=== PATIENT | female | born 1980 | race Caucasian/White ===

== ENCOUNTER → 2020-03-05 15:05 | Outpatient (BNVA) | payer BC, SELFPAY | PROVIDERS: Family Provider Nurse Practitioner; PCP Nurse Practitioner; Visit Provider Emergency Medicine | DX: J02.9 Acute pharyngitis, unspecified (principal); R68.89 Other general symptoms and signs | CPT/HCPCS: 87071; 87635; 87880 ==

== ENCOUNTER → 2021-02-23 15:28 | Outpatient (BNVA) | payer BC, SELFPAY | PROVIDERS: Family Provider Nurse Practitioner; PCP Nurse Practitioner; Visit Provider Obstetrics & Gynecology | DX: N93.9 Abnormal uterine and vaginal bleeding, unspecified (principal) | CPT/HCPCS: 83001; 84146; 84443; 84702; 85025 ==

== ENCOUNTER → 2021-02-25 08:36 | Outpatient (BNVA) | payer BC, SELFPAY | PROVIDERS: Family Provider Nurse Practitioner; PCP Nurse Practitioner; Visit Provider Obstetrics & Gynecology | DX: N93.9 Abnormal uterine and vaginal bleeding, unspecified (principal) | CPT/HCPCS: 76830 ==

== ENCOUNTER → 2021-03-04 17:37 | Outpatient (BNVA) | payer BC, SELFPAY | PROVIDERS: Family Provider Nurse Practitioner; PCP Nurse Practitioner; Visit Provider Family Medicine | DX: U07.1 COVID-19 (principal) | CPT/HCPCS: 87635; Q9956 ==

== ENCOUNTER → 2021-03-05 15:27 | Outpatient (BNVA) | payer BC, SELFPAY | PROVIDERS: Family Provider Nurse Practitioner; PCP Nurse Practitioner; Visit Provider Family Medicine | DX: U07.1 COVID-19 (principal); Z20.822 Contact with and (suspected) exposure to COVID-19 | CPT/HCPCS: 87635 ==

== ENCOUNTER 2021-03-10 12:25 | Inpatient (IN) | payer BC, SELFPAY ==
[2021-03-10] VITALS (10 sets, daily range): BP systolic 122–189; BP diastolic 72–106; PULSE 78–97; RESP 16–22; TEMP 36.5–37.2; O2SAT 90–94; BMI 49.8
--- NOTE | 2021-03-10 12:33 | XR_ITS ---
WS: [id number] Portable AP upright chest, 03/10/2021 Clinical Data: Cough Comparison: None. Findings: Bilateral patchy opacities throughout the lungs are consistent with diffuse pneumonia. The heart is slightly enlarged. No nodules, masses or effusions are seen. XR/XR chest 1V portable [id number] Impression: 1. Bilateral patchy opacities most consistent with pneumonia. 2. Cardiomegaly.
--- NOTE | 2021-03-10 12:34 | ED_ITS ---
HPI - SOB/Dyspnea General: Chief Complaint: COVID symptoms Stated Complaint: COVID Time Seen by Provider: 03/10/21 12:31 History of Present Illness: HPI Narrative: This patient is a 40-year-old female who presents to the emergency department for Covid-like symptoms. Patient states she tested +2 days ago at an urgent care in [place]. Patient states she was also diagnosed with bilateral pneumonia. Patient states that she became increasing shortness of breath over the past 2 days. EMS reports that her pulse ox at home was in the 70s. Patient is on 3 L by nasal cannula at this time patient states feeling much better. Will do medical evaluation treat as needed MD elicited complaint: shortness of breath and cough Pertinent past history: pneumonia Timing: constant Severity: moderate Exacerbating factors: nothing Relieving factors: nothing Known history of: recurrent pneumonia Associated symptoms: Deny abdominal pain, chest pain, extremity pain, fever(s), lightheadedness, nausea, palpitations or vomiting Review of Systems General: Reports: 10 or more systems reviewed and unremarkable except in HPI and below Const: Denies: fever(s), chills, body aches or fatigue Eyes: Denies: change in vision or blurry vision ENMT: Denies: throat pain, hoarseness or mouth pain Card: Denies: chest pain, palpitations, irregular heart rhythm, edema, swelling of feet/ankles or lightheadedness Resp: Reports: dyspnea and non-productive cough; Denies: productive cough, wheezing or pain on inspiration GI: Denies: abdominal pain, nausea or vomiting : Denies: flank pain, difficulty voiding, dysuria, urinary frequency, urinary urgency or urinary hesitancy Musc: Denies: neck pain, back pain, extremity pain, extremity swelling, joint pain, joint swelling, joint redness, joint warmth or limited range of motion Skin/Breast: Denies: rash, pruritus, erythema or skin tenderness Neuro: Denies: headache(s), numbness in extremities or weakness in extremities Psych: Denies: anxiety or depression PFSH ED PFSH: Medical History Flu-like symptoms Family History Grandfather Diabetes maternal Hyperlipidemia maternal Hypertension maternal Heart disease maternal Brother Heart disease Denies family history of Colon cancer Ovarian cancer Clotting disorder Breast cancer Anesthesia complication Bleeding disorder Uterine cancer Thyroid condition Stroke Social History Smoking and tobacco status: current every day smoker Quit status (tobacco): has quit using tobacco Year quit tobacco: 2019 Alcohol intake: current Alcohol intake frequency: holidays/special occasions only Alcohol type: wine and hard liquor Female Reproductive History: Spontaneous abortions: No Physical Exam Const: COMMON NORMALS: no acute distress, average body habitus, patient oriented x3, no limitations, healthy appearing, alert and well nourished HENMT: COMMON NORMALS: normocephalic, atraumatic, hearing grossly normal bilaterally, external ears normal, EAC's normal, TM's normal bilaterally, Normal external nose present, Normal nasal mucous membranes and turbinates present, moist oral mucous membranes, oropharynx normal, dentition normal and gingiva normal HEAD & SCALP: normocephalic and atraumatic NOSE: Normal external n ose present and Normal nasal mucous membranes and turbinates present EXTERNAL EAR: Yes external ears normal EXTERNAL AUDITORY CANAL: EAC's normal TYMPANIC MEMBRANE: TM's normal bilaterally Neck/C-Spine: COMMON NORMALS: full ROM, no lymphadenopathy, supple, no meningeal signs, no JVD, Thyroid normal and No carotid bruits THYROID: Thyroid normal Chest: COMMONS NORMALS: normal inspection of the chest, normal palpation of entire chest wall, normal inspection of the breasts and normal palpation of the breasts Breast/axilla inspection: Yes normal inspection of the breasts BREAST/AXILLA PALPATION: Yes normal palpation of the breasts Resp: COMMON NORMALS: normal respiratory effort, No retractions, No use of accessory muscles, clear to auscultation bilaterally and percussion normal AUSCULTATION: clear to auscultation bilaterally PERCUSSION: percussion normal Cardio: COMMON NORMALS: no JVD, regular rate, regular rhythm, S1 normal heart sound present, S2 normal heart sound present, No gallops present (Cardio), No clicks present (Cardio), No murmurs present (Cardio), No rub (Cardio) and Lana pheral pulses 2+ throughout RATE: regular rate RHYTHM: regular rhythm HEART SOUNDS: S1 normal heart sound present and S2 normal heart sound present PERIPHERAL PULSES: Peripheral pulses 2+ throughout GI: COMMON NORMALS: Normal to inspection, nondistended, normoactive bowel sounds present, Soft to palpation, non-tender, No hepatosplenomegaly present, no masses and no bruits PALPATION: Yes Soft to palpation and Yes No hepatosplenomegaly present Back/Pelvis: COMMON NORMALS: thoracic and lumbar spine normal to inspection, no thoracic nor lumbar tenderness, thoraco-lumbar ROM normal and straight leg raise negative bilaterally Extremity: COMMON NORMALS: normal to inspection, full ROM, capillary refill normal, no joint enlargement, no clubbing, cyanosis or edema, no calf tenderness and no pedal edema Neuro: COMMON NORMALS: patient oriented x3 SENSORIUM/ORIENTATION: Yes alert MENINGEAL SIGNS: Yes no meningeal signs Course Vital Signs: Vital signs: Vital Signs Temperature 98.9 F 03/10/21 13:42 Pulse Rate 97 03/10/21 15:29 Respiratory Rate 20 H 03/10/21 15:29 Blood Pressure 189/106 03/10/21 15:29 Pulse Oximetry 90 03/10/21 15:29 MDM - SOB/Dyspnea Lab Data: Labs: Lab Results 03/10/21 03/10/21 03/10/21 Range/Units 13:07 13:54 13:57 WBC 12.0 H (4.0-10.0) 10^3/ uL RBC 3.97 L (4.1-5.3) 10^6/u L Hgb 10.7 L (11.5-15.3) g/dL Hct 35.0 L (37.0-47.0) % MCV 88.2 (81-99) fL MCH 27.0 L (28.0-34.0) pg MCHC 30.6 (30.0-36.0) g/dL RDW 14.1 (12.1-15.1) % Plt Count 259 (130-400) 10^3/c mm MPV 11.3 H (7.4-10.4) fL Neut % (Auto) 85.3 % Lymph % (Auto) 9.8 % Liberty % (Auto) 3.8 % Eos % (Auto) 0.0 % Baso % (Auto) 0.2 % Neut # (Auto) 10.27 H (1.8-7.7) 10^3/u L Lymph # (Auto) 1.2 (0.8-4.8) 10^3/u L Liberty # (Auto) 0.5 (0.2-0.9) 10^3/u L Eos # (Auto) 0.0 (0.0-0.8) 10^3/u L Baso # (Auto) 0.0 (0.0-0.1) 10^3/u L Nucleated RBC % (a uto) 0.2 % Nucleated RBCs # 0.0 /100WBC D-Dimer (0-0.59) ug/mIFE U Specimen Type Sample Site ABG pH (7.35-7.45) ABG pCO2 (35-45) mmHg ABG pO2 (80.0-100.0) mmH g ABG HCO3 (22-26) mmol/L ABG O2 Saturation ABG Base Excess (-2.0-2.0) mmol/ L Bryan Test A-a O2 Gradient (5-10) mmHg Hematocrit (37-47) % Hgb O2 Saturation (95-100) % Carboxyhemoglobin (0.4-20.1) %THgb Methemoglobin (0.4-1.5) % Total Hemoglobin (12-16) g/dL Ionized Calcium (1.1-1.4) mmol/L O2 Delivery Device O2 Liters/Min % FiO2 % Grain Ii Farmworker ID Sodium (136-145) mmol/L Potassium (3.5-5.1) mmol/L Chloride (98-107) mmol/L Carbon Dioxide (22-29) mmol/L Anion Gap (5-19) BUN (6-20) mg/dL Creatinine (0.5-0.9) mg/dL GFR Calculation (90-130) mL/min Glucose (65-115) mg/dL Calculated Osmolal ity (285-295) mOsm/k g Lactic Acid (0.5-2.2) mmol/L Calcium (8.5-10.5) mg/dL Total Bilirubin (0.15-1.2) mg/dL AST (0-32) U/L ALT (0-33) U/L Alkaline Phosphata se (35-105) IU/L Total Protein (6.6-8.7) g/dL Albumin (3.5-5.2) g/dL Globulin (1.3-4.6) g/dL Urine Color Red (Yellow) Urine Appearance Hazy A (CLEAR) Urine pH 5 (5-7) Ur Specific Gravit y 1.015 (1.005-1.030) Urine Protein 1+ H (Negative) Urine Glucose (UA) Norm (Normal) Urine Ketones Negative (Negative) Urine Blood 3+ H (Negative) Urine Nitrate Negative (Negative) Urine Bilirubin Neg (Negative) Urine Urobilinogen Norm (Negative) mg/dL Ur Leukocyte Velia ase Negative (Negative) Urine RBC 15-25 H (0-2) /hpf Urine WBC 0-4 H (0-5) /hpf Ur Squamous Epith Cells None (0-5) /hpf Amorphous Sediment Not Reportable Urine Bacteria 2+ H (NONE) /hpf SARS-CoV-2 Ag (Rap id) Negative (Negative) 03/10/21 03/10/21 03/10/21 Range/Units 13:57 13:57 13:57 WBC (4.0-10.0) 10^3/ uL RBC (4.1-5.3) 10^6/u L Hgb (11.5-15.3) g/dL Hct (37.0-47.0) % MCV (81-99) fL MCH (28.0-34.0) pg MCHC (30.0-36.0) g/dL RDW (12.1-15.1) % Plt Count (130-400) 10^3/c mm MPV (7.4-10.4) fL Neut % (Auto) % Lymph % (Auto) % Liberty % (Auto) % Eos % (Auto) % Baso % (Auto) % Neut # (Auto) (1.8-7.7) 10^3/u L Lymph # (Auto) (0.8-4.8) 10^3/u L Liberty # (Auto) (0.2-0.9) 10^3/u L Eos # (Auto) (0.0-0.8) 10^3/u L Baso # (Auto) (0.0-0.1) 10^3/u L Nucleated RBC % (a uto) % Nucleated RBCs # /100WBC D-Dimer 1.16 H (0-0.59) ug/mIFE U Specimen Type Sample Site ABG pH (7.35-7.45) ABG pCO2 (35-45) mmHg ABG pO2 (80.0-100.0) mmH g ABG HCO3 (22-26) mmol/L ABG O2 Saturation ABG Base Excess (-2.0-2.0) mmol/ L Bryan Test A-a O2 Gradient (5-10) mmHg Hematocrit (37-47) % Hgb O2 Saturation (95-100) % Carboxyhemoglobin (0.4-20.1) %THgb Methemoglobin (0.4-1.5) % Total Hemoglobin (12-16) g/dL Ionized Calcium (1.1-1.4) mmol/L O2 Delivery Device O2 Liters/Min % FiO2 % Grain Ii Farmworker ID Sodium 140 (136-145) mmol/L Potassium 3.5 (3.5-5.1) mmol/L Chloride 104 (98-107) mmol/L Carbon Dioxide 21 L (22-29) mmol/L Anion Gap 18.5 (5-19) BUN 10 (6-20) mg/dL Creatinine 0.7 (0.5-0.9) mg/dL GFR Calculation 92.2 (90-130) mL/min Glucose 130 H (65-115) mg/dL Calculated Osmolal ity 291 (285-295) mOsm/k g Lactic Acid 1.8 (0.5-2.2) mmol/L Calcium 7.9 L (8.5-10.5) mg/dL Total Bilirubin 0.4 (0.15-1.2) mg/dL AST 25 (0-32) U/L ALT 21 (0-33) U/L Alkaline Phosphata se 62 (35-105) IU/L Total Protein 6.6 (6.6-8.7) g/dL Albumin 3.5 (3.5-5.2) g/dL Globulin 3.1 (1.3-4.6) g/dL Urine Color (Yellow) Urine Appearance (CLEAR) Urine pH (5-7) Ur Specific Gravit y (1.005-1.030) Urine Protein (Negative) Urine Glucose (UA) (Normal) Urine Ketones (Negative) Urine Blood (Negative) Urine Nitrate (Negative) Urine Bilirubin (Negative) Urine Urobilinogen (Negative) mg/dL Ur Leukocyte Velia ase (Negative) Urine RBC (0-2) /hpf Urine WBC (0-5) /hpf Ur Squamous Epith Cells (0-5) /hpf Amorphous Sediment Urine Bacteria (NONE) /hpf SARS-CoV-2 Ag (Rap id) (Negative) 03/10/21 Range/Units 14:50 WBC (4.0-10.0) 10^3/ uL RBC (4.1-5.3) 10^6/u L Hgb (11.5-15.3) g/dL Hct (37.0-47.0) % MCV (81-99) fL MCH (28.0-34.0) pg MCHC (30.0-36.0) g/dL RDW (12.1-15.1) % Plt Count (130-400) 10^3/c mm MPV (7.4-10.4) fL Neut % (Auto) % Lymph % (Auto) % Liberty % (Auto) % Eos % (Auto) % Baso % (Auto) % Neut # (Auto) (1.8-7.7) 10^3/u L Lymph # (Auto) (0.8-4.8) 10^3/u L Liberty # (Auto) (0.2-0.9) 10^3/u L Eos # (Auto) (0.0-0.8) 10^3/u L Baso # (Auto) (0.0-0.1) 10^3/u L Nucleated RBC % (a uto) % Nucleated RBCs # /100WBC D-Dimer (0-0.59) ug/mIFE U Specimen Type Arterial Sample Site Brachial, left ABG pH 7.46 H (7.35-7.45) ABG pCO2 34.3 L (35-45) mmHg ABG pO2 60.2 L (80.0-100.0) mmH g ABG HCO3 24.0 (22-26) mmol/L ABG O2 Saturation 92.7 ABG Base Excess 0.4 (-2.0-2.0) mmol/ L Bryan Test N/a A-a O2 Gradient 20.1 H (5-10) mmHg Hematocrit 32.1 L (37-47) % Hgb O2 Saturation 90.7 L (95-100) % Carboxyhemoglobin 1.0 (0.4-20.1) %THgb Methemoglobin 1.1 (0.4-1.5) % Total Hemoglobin 10.5 L (12-16) g/dL Ionized Calcium 1.1 (1.1-1.4) mmol/L O2 Delivery Device Nc O2 Liters/Min 4.0 % FiO2 36.0 % Grain Ii Farmworker ID Gd Sodium 141.0 (136-145) mmol/L Potassium 3.5 (3.5-5.1) mmol/L Chloride (98-107) mmol/L Carbon Dioxide (22-29) mmol/L Anion Gap (5-19) BUN (6-20) mg/dL Creatinine (0.5-0.9) mg/dL GFR Calculation (90-130) mL/min Glucose 140.0 H (65-115) mg/dL Calculated Osmolal ity (285-295) mOsm/k g Lactic Acid (0.5-2.2) mmol/L Calcium (8.5-10.5) mg/dL Total Bilirubin (0.15-1.2) mg/dL AST (0-32) U/L ALT (0-33) U/L Alkaline Phosphata se (35-105) IU/L Total Protein (6.6-8.7) g/dL Albumin (3.5-5.2) g/dL Globulin (1.3-4.6) g/dL Urine Color (Yellow) Urine Appearance (CLEAR) Urine pH (5-7) Ur Specific Gravit y (1.005-1.030) Urine Protein (Negative) Urine Glucose (UA) (Normal) Urine Ketones (Negative) Urine Blood (Negative) Urine Nitrate (Negative) Urine Bilirubin (Negative) Urine Urobilinogen (Negative) mg/dL Ur Leukocyte Velia ase (Negative) Urine RBC (0-2) /hpf Urine WBC (0-5) /hpf Ur Squamous Epith Cells (0-5) /hpf Amorphous Sediment Urine Bacteria (NONE) /hpf SARS-CoV-2 Ag (Rap id) (Negative) Imaging Data^: CXR: Attestation: I personally reviewed and interpreted this imaging study as follows: Radiologist's impression: Findings: Bilateral patchy opacities throughout the lungs are consistent with diffuse pneumonia. The heart is slightly enlarged. No nodules, masses or effusions are seen. XR/XR chest 1V portable [id number] Impression: 1. Bilateral patchy opacities most consistent with pneumonia. 2. Cardiomegaly. CT Chest: Attestation: I personally reviewed and interpreted this imaging study as follows: Radiologist's impression: IMPRESSION: 1. Negative for pulmonary embolus 2. Patchy bilateral airspace opacities consistent with an infectious process. 3. Hepatic steatosis. 4. Cholecystectomy. Discharge Plan Discharge Condition: Stable Prescriptions: No Action escitalopram oxalate [Lexapro] 20 mg tablet 20 mg PO BEDTIME RF: 0 Tylenol Extra Strength 500 mg Tablet 1,000 mg PO PRN RF: 0 promethazine 25 mg tablet 25 mg PO Q6H PRN (Reason: Nausea And Vomiting) RF: 0 ibuprofen 200 mg Tablet 400 - 600 mg PO PRN RF: 0 levofloxacin 500 mg tablet 500 mg PO DAILY RF: 0 Referrals: Chanel Brock FNP [Primary Care Provider] - Coding Level of Care Code ED Installer Apprentice for Chg Fwd Exam Comprehensive
[2021-03-10] MEDS: sodium chloride 0.9% 500 ML IV (13:30)
[2021-03-10] MEDS: dexamethasone 10 mg/mL INJ IM (13:30)
[2021-03-10 14:21] LABS: Basophils % 0.2 %; Hemoglobin 10.7 g/dL (11.5-15.3); Lymphocytes # 1.2 10^3/uL (0.8-4.8); Lymphocytes % 9.8 %; Mean Corpuscular HGB Conc 30.6 g/dL (30.0-36.0); Mean Corpuscular Volume 88.2 fL (81-99); Mean Platelet Volume 11.3 fL (7.4-10.4); Monocytes # 0.5 10^3/uL (0.2-0.9); Monocytes % 3.8 %; Neutrophils # 10.27 10^3/uL (1.8-7.7); Neutrophils % 85.3 %; Nucleated Red Blood Cells % 0.2 %; Platelet Count 259 10^3/cmm (130-400); Red Blood Count 3.97 10^6/uL (4.1-5.3); Red Cell Distribution Width 14.1 % (12.1-15.1)
[2021-03-10 14:24] LABS: D Dimer 1.16 ug/mIFEU (0-0.59)
[2021-03-10 14:27] LABS: Lactic Sepsis W/Reflex 1.8 mmol/L (0.5-2.2)
[2021-03-10 14:28] LABS: Alanine Aminotransferase 21 U/L (0-33); Albumin Level 3.5 g/dL (3.5-5.2); Alkaline Phosphatase 62 IU/L (35-105); Anion Gap 18.5 (5-19); Aspartate Amino Transferase 25 U/L (0-32); Blood Urea Nitrogen 10 mg/dL (6-20); Calcium 7.9 mg/dL (8.5-10.5); Carbon Dioxide 21 mmol/L (22-29); Chloride 104 mmol/L (98-107); Globulin 3.1 g/dL (1.3-4.6); Glomerular Filtration Rate 92.2 mL/min (90-130); Glucose 130 mg/dL (65-115); Osmolality Calculated 291 mOsm/kg (285-295); Potassium 3.5 mmol/L (3.5-5.1); Sodium 140 mmol/L (136-145); Total Bilirubin 0.4 mg/dL (0.15-1.2); Total Protein 6.6 g/dL (6.6-8.7)
[2021-03-10 14:28] LABS: Add Urine Microscopic? YES; Bacteria Urine 2+ /hpf; Bilirubin Urine Neg (Negative); Blood Urine 3+ (Negative); Glucose Urine UA Norm (Normal); Ketones Urine Negative (Negative); Leukocyte Esterase Urine Negative (Negative); Nitrate Urine Negative (Negative); Protein Urine 1+ (Negative); RBC Urine 15-25 /hpf (0-2); Specific Gravity, Urine 1.015 (1.005-1.030); Urine Appearance Hazy (CLEAR); Urine Color Red (Yellow); Urobilinogen Urine Norm (Negative); WBC Urine 0-4 /hpf (0-5); pH Urine 5 (5-7)
[2021-03-10 14:29] LABS: Add Urine Culture? Yes
[2021-03-10] MEDS: albuterol 8 gm MDI 2 PUFF INHALATION (14:40)
--- NOTE | 2021-03-10 14:53 | CTR_ITS ---
PROCEDURE INFORMATION: Exam: CTA Chest With Contrast Exam date and time: 03/10/2021 2:53 PM Age: 40 years old Clinical indication: Shortness of breath; Additional info: SOB with elevated ddimer - possible covid TECHNIQUE: Imaging protocol: Computed tomographic angiography of the chest with contrast. 3D rendering (Not supervised by radiologist): MIP and/or 3D reconstructed images were created by the technologist. Radiation optimization: All CT scans at this facility use at least one of these dose optimization techniques: automated exposure control; mA and/or kV adjustment per patient size (includes targeted exams where dose is matched to clinical indication); or iterative reconstruction. Contrast material: OMNI 350; Contrast volume: 140 ml; Contrast route: INTRAVENOUS (IV); COMPARISON: CR XR chest 1V portable [id number] 03/10/2021 12:47 PM RADIATION DOSE METRICS: Total DLP (mGy-cm): 2341.69 FINDINGS: Pulmonary arteries: Normal. No pulmonary emboli. Aorta: Unremarkable. No aortic aneurysm. No aortic dissection. Lungs: Patchy bilateral airspace opacities consistent with an infectious process. Pleural spaces: Unremarkable. No pneumothorax. No pleural effusion. Heart: Unremarkable. No cardiomegaly. No pericardial effusion. Lymph nodes: Unremarkable. No enlarged lymph nodes. Liver: Hepatic steatosis. Gallbladder and bile ducts: Cholecystectomy. Bones/joints: Unremarkable. No acute fracture. Soft tissues: Unremarkable. CT/CT angio chest PE protcl [id number] IMPRESSION: 1. Negative for pulmonary embolus 2. Patchy bilateral airspace opacities consistent with an infectious process. 3. Hepatic steatosis. 4. Cholecystectomy. Radiation Dose CTDIVOL = (mGy): DLP = 2341.69 (mGy-cm)
[2021-03-10 15:12] LABS: ABG PCO2 34.3 mmHg (35-45); ABG PH Result 7.46 (7.35-7.45); Alveolar-Arterial Oxygen Gradi 20.1 mmHg (5-10); Arterial Blood Gas Hematocrit 32.1 % (37-47); Base Excess ABG 0.4 mmol/L (-2.0-2.0); Blood Gas Operator Identificat GD; Blood Gas Sample Site Brachial, left; Blood Gas Sample Type Arterial; HGB O2 Sat 90.7 % (95-100); Ionized Calcium Level - ABG 1.1 mmol/L (1.1-1.4); Methemoglobin 1.1 % (0.4-1.5); Oxygen Device NC; Oxygen Saturation ABG 92.7; PO2 ABG 60.2 mmHg (80.0-100.0); Potassium Level - ABG 3.5 mmol/L (3.5-5.0); Total Hemoglobin 10.5 g/dL (12-16)
[2021-03-10 15:13] LABS: SARS Covid-2 Antigen Negative (Negative)
[2021-03-10] MEDS: iohexol 350 mg/mL 100 mL Btl IV ×2 (15:15→15:22)
[2021-03-10] MEDS: azithromycin 500 MG in sodium chloride 0.9% 250 ML 250 MG IV (15:52)
--- NOTE | 2021-03-10 16:43 | PM.HP ---
Providers/Chief Complaint Primary Care Provider: AMAYA Christianson Chief Complaint: COVID History of Present Illness Lisy Edmondson is a 40 year old female with no significant past medical history other than heavy menstrual bleeding for last 2 months on and off. Patient states she was doing fine until February 28 when she started having fevers, runny nose, headache, dizziness for which he went to the urgent care where she was diagnosed of a possible strep throat. As patient was not feeling well she went to the urgent care on March 05 where she was tested positive for COVID-19. She went to [place] but was not been able to admitted because of lack of beds. She presented to the ER today because of difficulty in breathing. Inferiorly patient was found to have a saturation of 71% on room air. In ER on examination patient is tachypneic saturating 91% on 5 L oxygen supplementation. She denies any nausea vomiting, dizziness presently. She states she has been having menstrual bleeding again for last 2 days. Blood work in the ER showed a white count of 12,000, hemoglobin of 10.7, 143, creatinine 0.7, AST/ALT 25/21, UA 3+ blood, negative for any sign of infection. CTA which was as below. Review of Systems General: Reports: 10 or more systems reviewed and unremarkable except in HPI and below Const: Denies: fever(s), chills, body aches, change in appetite, change in weight, malaise, night sweats, diaphoresis, change in sleep pattern, daytime sleepiness or snoring Eyes: Denies: change in vision, blurry vision, photophobia, eye discomfort or eye discharge ENMT: Denies: throat pain, enlarged tonsils, hoarseness, mouth pain, oral sores, dry mouth, tinnitus, nasal congestion or post nasal drip Card: Denies: chest pain, palpitations, irregular heart rhythm, edema, swelling of feet/ankles, lightheadedness, syncope, pre-syncope, dyspnea on exertion, orthopnea, leg pain with exertion or acrocyanosis Resp: Denies: dyspnea, productive cough, non-productive cough, wheezing, stridor, pain on inspiration, change in phlegm color, hemoptysis or chest congestion GI: Denies: abdominal pain, nausea, vomiting, hematemesis, coffee ground emesis, dysphagia, heartburn, diarrhea, constipation, bloating, GI cramping, change in bowel habits, pain on defecation, hematochezia or melena : Denies: flank pain, dysuria, urinary frequency, urinary urgency, urinary hesitancy, nocturia or hematuria Musc: Denies: neck pain, back pain, extremity pain, joint pain, joint swelling, joint redness, joint stiffness or limited range of motion Neuro: Denies: headache(s), numbness in extremities, weakness in extremities, sensory changes, lack of coordination, difficulty walking, frequent falls, dizziness, vertigo, confusion, Slurred speech present, difficulty communicating thoughts or seizure-like activity Psych: Denies: anxiety, depression, mood swings, panic attacks, hopelessness or irritability Endo: Denies: polyuria, polydipsia, tired all the time, cold intolerance, excessive sweating, flushing or heat intolerance Arsenio/Lymph: Denies: easy bruising or easy bleeding All/Imm: Denies: tongue swelling, facial swelling or acute wheezing Medications/Allergies Home Medications Medication Instructions Recorded Confirmed Last Taken Type escitalopram oxalate 20 mg tablet 20 mg PO BEDTIME 02/23/21 03/10/21 03/09/21 History acetaminophen [Tylenol Extra 1,000 mg PO PRN 03/10/21 03/10/21 Unknown History Strength] ibuprofen 400 - 600 mg PO PRN 03/10/21 03/10/21 Unknown History levofloxacin 500 mg PO DAILY 03/10/21 03/10/21 03/09/21 History promethazine 25 mg PO Q6H PRN 03/10/21 03/10/21 03/09/21 History Allergies Allergy/AdvReac Type Severity Reaction Status Date / Time codeine Allergy Intermediate rash Verified 03/10/21 15:30 Penicillins Allergy Intermediate rash Verified 03/10/21 15:30 PFSH Acute PFSH: Medical History (Updated 03/10/21 @ 17:26 by Javier Hutchinson MD) Abnormal uterine bleeding (AUB) Flu-like symptoms Surgical History (Updated 03/10/21 @ 17:26 by Javier Hutchinson MD) H/O dilation and curettage x2 S/P cholecystectomy Family History Grandfather Diabetes maternal Hyperlipidemia maternal Hypertension maternal Heart disease maternal Brother Heart disease Denies family history of Colon cancer Ovarian cancer Clotting disorder Breast cancer Anesthesia complication Bleeding disorder Uterine cancer Thyroid condition Stroke Social History Smoking and tobacco status: current every day smoker Quit status (tobacco): has quit using tobacco Year quit tobacco: 2019 Alcohol intake: current Alcohol intake frequency: holidays/special occasions only Alcohol type: wine and hard liquor Female Reproductive History: Spontaneous abortions: No Vitals/I&O/Wt Last Vital Signs Temp 98.9 F 03/10/21 13:42 Pulse 97 03/10/21 15:29 Resp 20 H 03/10/21 15:29 BP 189/106 03/10/21 15:29 Pulse Ox 90 03/10/21 15:29 Weight last 48 hrs Weight 144.242 kg Physical Exam Narrative: EXAM NARRATIVE: General: In distress because of difficulty in breathing, AOx3, morbidly obese on 4 L oxygen supplementation HEENT: PERRLA, pupils bilateral equal and reactive Chest: Bilateral diminished breath sounds, occasional rhonchi present all over lung hall CVS: S1-S2 regular, no murmurs, no tachycardia, no gallops, no rubs Abdomen: Soft, nontender, no organomegaly, bowel sounds present Neuro: No focal deficits, no facial deformity, AO x3, power 5/5 in all limbs Data : 03/10/21 13:57 03/10/21 13:57 Micro: Microbiology 03/10/21 13:57 Blood Culture - Preliminary Blood SPECIMEN COLLECTED 03/10/21 13:54 Blood Culture - Preliminary Blood SPECIMEN COLLECTED A&P Assessment and plan (1) Respiratory failure with hypoxia: Status: Acute (2) COVID-19: Status: Acute (3) Heavy menstrual bleeding: Status: Acute Qualifiers: Menorrhagia type: with irregular cycle Qualified Code(s): N92.1 - Excessive and frequent menstruation with irregular cycle Additional A&P Information Hypoxic respiratory failure secondary to COVID-19 pneumonia: Oxygen supplementation keeping saturation 92%. Start patient on remdesivir. Decadron 6 mg IV daily. Advair, Spiriva. Vitamin C, zinc. Pulmonary toilet with incentive spirometry and flutter valve. Check procalcitonin, MRSA swab, blood culture, sputum culture, flu swab, urine legionella, bacterial antigen. Low suspicion for superimposed bacterial infection for now as patient is on azithromycin 5 mg IV daily. Check inflammatory markers including LDH, ESR, CRP, ferritin. If inflammatory markers trending up or if patient is requiring higher oxygen supplementation can give a dose of Actemra. D-dimer elevated but CTA negative for pulmonary embolism. Given abnormal heavy menstrual bleeding will hold off on giving full dose anticoagulation for now. Check iron panel, vitamin B12, folate level. Heavy menstrual bleeding: We will consult MANAGER ORDER for further assistance. Can add tranexamic acid. Check B-hcg, transvaginal USG Monitor hemoglobin. Full code. GI soft regular diet. Famotidine for PUD prophylaxis. Attestations Medical Necessity Statement*: Admission for more than 2 midnights for hypoxic respiratory failure secondary COVID-19 pneumonia. Time Spent in Patient Care: Greater than 35 minutes (>than 50% of time spent in counselling and/or direct pt care on unit). Coding Level of Care Code Acute [employer]osc[employer] Laboratory Technician for [facility] Diagnoses Respiratory failure with hypoxia J96.91 COVID-19 U07.1 Heavy menstrual bleeding N92.1 Menorrhagia type: with irregular cycle
[2021-03-10 17:12] LABS: Fibrinogen 516 mg/dL (174-498)
[2021-03-10 17:34] LABS: Procalcitonin 0.05 ng/mL (0-0.5); Thyroid Stimulating Hormone 1.38 uIU/mL (0.27-4.20)
[2021-03-10 17:35] LABS: NT Pro B Type Natriuretic Pept 79 pg/mL (0-125)
[2021-03-10 17:37] LABS: Erythrocyte Sedimentation Rate 76 mm/hr (0-15)
[2021-03-10 17:45] LABS: Creatine Phosphokinase 81 U/L (26-192); Iron 10 ug/dL (37-145); Lactate Dehydrogenase 412 U/L (135-214); Magnesium 2.5 mg/dL (1.7-2.3); Percent Saturation 3.8 % (20-50); Total Iron Binding Capacity 263 mcg/dl; Unsaturated Iron Binding 253 ug/dL (112-347)
[2021-03-10] MEDS: remdesivir 200 MG in sodium chloride 0.9% (100 ml) 100 ML 100 MG IV (17:45)
[2021-03-10] MEDS: famotidine 20 mg/2 mL INJ IVP (17:46)
[2021-03-10 18:15] LABS: Influenza A by IFA Negative (Negative); Influenza B by IFA Negative (Negative)
[2021-03-10] MEDS: benzonatate 100 mg Capsule PO (20:26)
[2021-03-10] MEDS: ferrous gluconate 324 mg Tablet PO (20:26)
[2021-03-10] MEDS: ascorbic acid 500 mg Tablet 1000 MG PO (20:26)
[2021-03-11] VITALS (10 sets, daily range): BP systolic 108–138; BP diastolic 69–87; PULSE 74–93; RESP 16–20; TEMP 36.4–37.8; O2SAT 90–93; BMI 49.8
[2021-03-11] MEDS: famotidine 20 mg/2 mL INJ IVP ×2 (04:47→16:26)
--- NOTE | 2021-03-11 05:00 | USCV_ITS ---
Lisy Edmondson Age: 40 Gender: F : 1980 Exam Date: 03/11/2021 13:14 Ordering Phys: Javier Hutchinson MD Technologist: Exam Location: [facility] [place] Indication: SOB/COVID BP: 138 / 78 HR: 103 Rhythm: Sinus Technical Quality: Adequate MEASUREMENTS (Male / Female) Normal Values 2D ECHO LV Diastolic Diameter PLAX 3.5 cm 4.2 - 5.9 / 3.9 - 5.3 cm LV Systolic Diameter PLAX 2.2 cm IVS Diastolic Thickness 1.0 cm 0.6 - 1.0 / 0.6 - 0.9 cm IVS Systolic Thickness 1.3 cm LVPW Diastolic Thickness 1.0 cm 0.6 - 1.0 / 0.6 - 0.9 cm LVPW Systolic Thickness 1.6 cm LVOT Diameter 2.0 cm LV Ejection Fraction 2D Teich 67.9 % LV Ejection Fraction MOD 2C 67.4 % LV Ejection Fraction 2C AL 67.7 % LA Diameter 3.3 cm LA Width 3.7 cm LA Height 4.5 cm RA Width 3.4 cm RA Height 4.3 cm Aorta at Sinotubular Diameter 2.0 cm DOPPLER AV Peak Velocity 181.0 cm/s LVOT Peak Velocity 108.0 cm/s AV Area Cont Eq vti 2.4 cm squared AV Area Cont Eq pk 1.9 cm squared MV Area PHT 5.0 cm squared Mitral E to A Ratio 1.3 MV E' Velocity 61.0 cm/s Mitral E to MV E' Ratio 7.9 Mitral E to LV E' Lateral Ratio 6.9 Mitral E to LV E' Septal Ratio 9.2 TR Peak Velocity 146.0 cm/s TR Peak Gradient 8.5 mmHg TV Peak E Velocity 121.0 cm/s Right Atrial Pressure 3.0 mmHg Pulmonary Artery Systolic Pressu 11.5 mmHg PV Peak Velocity 104.0 cm/s FINDINGS Left Ventricle Normal left ventricular cavity size. Normal left ventricular systolic function. No regional wall motion abnormalities. Left ventricular ejection fraction is estimated at 65 %. Normal diastolic function. Right Ventricle The right ventricle is normal in size and function. Right Atrium The right atrium is normal in size. Left Atrium The left atrium is normal in size. Mitral Valve Structurally normal mitral valve without significant stenosis or prolapse. There is no mitral regurgitation. Aortic Valve Structurally normal aortic valve without significant sclerosis or stenosis. There is no aortic regurgitation. Tricuspid Valve Structurally normal tricuspid valve without significant stenosis or regurgitation. Pulmonary artery systolic pressure is normal. Pulmonic Valve Structurally normal pulmonic valve without significant stenosis. There is no pulmonic regurgitation. Pericardium Normal pericardium without effusion. Aorta Normal ascending aorta dimension. CONCLUSIONS 1-Normal left ventricular cavity size. Normal left ventricular systolic function. No regional wall motion abnormalities. Left ventricular ejection fraction is estimated at 65 %. Normal diastolic function. 2-No significant valve abnormalities. 3-There is no pericardial effusion. 4-Pulmonary artery systolic pressure is within normal limits. 5-Right atrial pressure is around 5 mm of mercury. 6-There are no prior echocardiogram studies to compare. Arian Rodriguez MD (Electronically Signed) Final Date: 11 March 2021 15:57 S
--- NOTE | 2021-03-11 06:00 | XR_ITS ---
WS: [id number] Portable AP upright chest, 03/11/2021 Clinical Data: covid Comparison: Portable chest, 03/10/2021 Findings: The patchy bilateral pulmonary opacities have not changed. The heart is slightly enlarged. No nodules or masses are seen. XR/XR chest 1V portable [id number] Impression: 1. No change in bilateral pulmonary opacities. 2. Cardiomegaly.
[2021-03-11 06:42] LABS: Basophils % 0.2 %; D Dimer 0.77 ug/mIFEU (0-0.59); Hematocrit 31.4 % (37.0-47.0); Hemoglobin 9.6 g/dL (11.5-15.3); Lymphocytes # 0.7 10^3/uL (0.8-4.8); Lymphocytes % 10.8 %; Mean Corpuscular HGB Conc 30.6 g/dL (30.0-36.0); Mean Corpuscular Hemoglobin 27.2 pg (28.0-34.0); Monocytes # 0.4 10^3/uL (0.2-0.9); Monocytes % 5.5 %; Neutrophils # 5.33 10^3/uL (1.8-7.7); Nucleated Red Blood Cells % 0 %; Platelet Count 264 10^3/cmm (130-400); Red Blood Count 3.53 10^6/uL (4.1-5.3); Red Cell Distribution Width 14.3 % (12.1-15.1); White Blood Count 6.5 10^3/uL (4.0-10.0)
[2021-03-11 06:50] LABS: Alanine Aminotransferase 24 U/L (0-33); Albumin Level 3.3 g/dL (3.5-5.2); Alkaline Phosphatase 55 IU/L (35-105); Anion Gap 15.8 (5-19); Aspartate Amino Transferase 23 U/L (0-32); Blood Urea Nitrogen 12 mg/dL (6-20); Calcium 7.8 mg/dL (8.5-10.5); Carbon Dioxide 23 mmol/L (22-29); Chloride 106 mmol/L (98-107); Glucose 169 mg/dL (65-115); Osmolality Calculated 296 mOsm/kg (285-295); Potassium 3.8 mmol/L (3.5-5.1); Sodium 141 mmol/L (136-145); Total Bilirubin 0.3 mg/dL (0.15-1.2); Total Protein 6.3 g/dL (6.6-8.7)
[2021-03-11 07:11] LABS: C Reactive Protein 100.8 mg/L (0.0-4.9); Chol HDL Ratio 3.34 mg/dL (0.0-4.40); Cholesterol 137 mg/dL (0-200); Creatine Phosphokinase 51 U/L (26-192); Ferritin 161 ng/mL (15-150); HDL Cholesterol 41 mg/dL (60-100); LDL Cholesterol Calculated 82 mg/dL (50-129); NT Pro B Type Natriuretic Pept 74 pg/mL (0-125); Triglycerides 71 mg/dL (0-150); VLDL Cholestrol Calculation 14 mg/dL (0-30)
[2021-03-11 07:40] LABS: Estmated Average Glucose 120; Hemoglobin A1C 5.8 % (4.0-6.0)
[2021-03-11 07:52] LABS: Erythrocyte Sedimentation Rate 69 mm/hr (0-15)
[2021-03-11] MEDS: dexamethasone 4 mg/mL INJ 6 MG IVP (08:34)
[2021-03-11] MEDS: ascorbic acid 500 mg Tablet 1000 MG PO ×2 (08:58→17:31)
[2021-03-11] MEDS: ferrous gluconate 324 mg Tablet PO (08:58)
[2021-03-11] MEDS: zinc gluconate 50 mg Tablet PO (08:59)
[2021-03-11] MEDS: benzonatate 100 mg Capsule PO ×3 (08:59→21:08)
--- NOTE | 2021-03-11 10:39 | ECG_ITS ---
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 Measurements Intervals [place] Rate: 88 P: 47 ID: [id number] QRS: -4 QRSD: 88 T: 53 QT: 369 QTc: 448 Interpretive Statements SINUS RHYTHM LOW QRS VOLTAGE IN PRECORDIAL LEADS [QRS DEFLECTION < 1.0 mV IN CHEST LEADS] NONSPECIFIC T-WAVE ABNORMALITY No previous ECG available for comparison Electronically Signed On 03-16-2021 16:52:42 CDT by Kristina Espinosa M.D. [id number]
--- NOTE | 2021-03-11 11:05 | PC.CHAP ---
Pastoral Care Encounter/Spiritual Assessment Type of Contact [] Declined trade promotion analyst visit [] Patient/Family/Request visit [] Outpatient visit [] Follow-up visit [] Physician referral [] Code/Alert [] Routine visit [] Staff referral [] Actively dying [] Patient sleeping [] Family support [] [] Out of room [] Palliative care [] [] Receiving care in room [] Pre-surgical visit [] Trauma [] Long length of stay [] ICU visit [x] Other: Isolation covid Relational/Emotional Strength [] Patient feels connected with others/family/visitors/staff [] Distress [] Loneliness/isolation [] Abandonment Spirituality of Patient [] Person of Karolyn [] Attends Presybeterian of their Karolyn [] Believes in Prayer [] Reads Bible or Mosque materials [] There are Spiritual issues to be addressed Journeyman Apprentice Electricians Interventions [] Prayer [] Active listening [] Non-anxious presence [] Spiritual/emotional support [] Crisis/trauma care [] Spiritual counseling [] Bereavement support [] Provided bereavement packet [] Provided Bible/devotional materials [] Provided toy/stuffed animal, coloring book to patient or family member [] Provided Communion [] Anointing/Mershon [] Salvation [] Completed spiritual assessment [] Other: Impact on Illness or Injury [] Angry [] Fearful [] Anxious [] Often cries [] Exhaustion [] Unable to work [] Unable to attend sabianism [] Unable to walk/stand [] Unable to read [] Unable to drive [] Unable to eat/drink [] Unable to sleep [] Unable to be with family [] Patient intubated [] Other: Summary Isolation covid Time spent with patient 5 mins
[2021-03-11] MEDS: FUROsemide 20 mg Tablet PO (11:11)
[2021-03-11] MEDS: azithromycin 500 MG in sodium chloride 0.9% 250 ML 250 MG IV (12:56)
--- NOTE | 2021-03-11 15:06 | PM.PN ---
Subjective Subjective: Interval history: No acute events overnight. Currently on examination on 4 L saturating 90%. Patient has just had a bath tachypneic. States feeling little better than yesterday. Not working with incentive spirometry and flutter valve. Appetite appropriate. Discussed in detail regarding need for incentive spirometry and flutter valve. Discussed that she should be working with incentive spirometer and flutter valve every 2-3 hours as tolerated.. Patient verbalized understanding. Vitals/I&O/Wt Last Vital Signs Temp 97.6 F 03/11/21 12:00 Pulse 85 03/11/21 12:00 Resp 17 03/11/21 12:00 BP 108/69 03/11/21 12:00 Pulse Ox 90 03/11/21 12:00 03/11/21 03/11/21 03/11/21 06:59 14:59 22:59 Intake Total 500 / 1456 394.167 / 394.167 Balance 500 / 1456 394.167 / 394.167 Weight last 48 hrs Weight 144.242 kg Weight 144.242 kg Physical Exam Narrative: EXAM NARRATIVE: General: In distress because of difficulty in breathing, AOx3, morbidly obese on 4 L oxygen supplementation HEENT: PERRLA, pupils bilateral equal and reactive Chest: Bilateral diminished breath sounds, occasional rhonchi present all over lung hall CVS: S1-S2 regular, no murmurs, no tachycardia, no gallops, no rubs Abdomen: Soft, nontender, no organomegaly, bowel sounds present Neuro: No focal deficits, no facial deformity, AO x3, power 5/5 in all limbs Data : 03/11/21 06:15 03/11/21 06:15 Other Labs: Laboratory Results WBC 6.5 10^3/uL (4.0-10.0) 03/11/21 06:15 RBC 3.53 10^6/uL (4.1-5.3) L 03/11/21 06:15 Hgb 9.6 g/dL (11.5-15.3) L 03/11/21 06:15 Hct 31.4 % (37.0-47.0) L 03/11/21 06:15 MCV 89.0 fL (81-99) 03/11/21 06:15 MCH 27.2 pg (28.0-34.0) L 03/11/21 06:15 MCHC 30.6 g/dL (30.0-36.0) 03/11/21 06:15 RDW 14.3 % (12.1-15.1) 03/11/21 06:15 Plt Count 264 10^3/cmm (130-400) 03/11/21 06:15 MPV 11.0 fL (7.4-10.4) H 03/11/21 06:15 Neut % (Auto) 82.0 % 03/11/21 06:15 Lymph % (Auto) 10.8 % 03/11/21 06:15 [place] % (Auto) 5.5 % 03/11/21 06:15 Eos % (Auto) 0.0 % 03/11/21 06:15 Baso % (Auto) 0.2 % 03/11/21 06:15 Neut # (Auto) 5.33 10^3/uL (1.8-7.7) 03/11/21 06:15 Lymph # (Auto) 0.7 10^3/uL (0.8-4.8) L 03/11/21 06:15 [place] # (Auto) 0.4 10^3/uL (0.2-0.9) 03/11/21 06:15 Eos # (Auto) 0.0 10^3/uL (0.0-0.8) 03/11/21 06:15 Baso # (Auto) 0.0 10^3/uL (0.0-0.1) 03/11/21 06:15 Nucleated RBC % (auto) 0 % 03/11/21 06:15 Nucleated RBCs # 0.0 /100WBC 03/11/21 06:15 ESR 69 mm/hr (0-15) H 03/11/21 06:15 Fibrinogen 516 mg/dL (174-498) H 03/10/21 13:57 D-Dimer 0.77 ug/mIFEU (0-0.59) H 03/11/21 06:15 Specimen Type Arterial 03/10/21 14:50 Sample Site Brachial, left 03/10/21 14:50 ABG pH 7.46 (7.35-7.45) H 03/10/21 14:50 ABG pCO2 34.3 mmHg (35-45) L 03/10/21 14:50 ABG pO2 60.2 mmHg (80.0-100.0) L 03/10/21 14:50 ABG HCO3 24.0 mmol/L (22-26) 03/10/21 14:50 ABG O2 Saturation 92.7 03/10/21 14:50 ABG Base Excess 0.4 mmol/L (-2.0-2.0) 03/10/21 14:50 Bryan Test N/a 03/10/21 14:50 A-a O2 Gradient 20.1 mmHg (5-10) H 03/10/21 14:50 Hematocrit 32.1 % (37-47) L 03/10/21 14:50 Hgb O2 Saturation 90.7 % (95-100) L 03/10/21 14:50 Carboxyhemoglobin 1.0 %THgb (0.4-20.1) 03/10/21 14:50 Methemoglobin 1.1 % (0.4-1.5) 03/10/21 14:50 Total Hemoglobin 10.5 g/dL (12-16) L 03/10/21 14:50 Sodium 141.0 mmol/L (131-143) 03/10/21 14:50 Potassium 3.5 mmol/L (3.5-5.0) 03/10/21 14:50 Glucose 140.0 mg/dL (70-115) H 03/10/21 14:50 Ionized Calcium 1.1 mmol/L (1.1-1.4) 03/10/21 14:50 O2 Delivery Device Nc 03/10/21 14:50 O2 Liters/Min 4.0 % 03/10/21 14:50 FiO2 36.0 % 03/10/21 14:50 Fly Fishing Guide ID Gd 03/10/21 14:50 Sodium 141 mmol/L (136-145) 03/11/21 06:15 Potassium 3.8 mmol/L (3.5-5.1) 03/11/21 06:15 Chloride 106 mmol/L (98-107) 03/11/21 06:15 Carbon Dioxide 23 mmol/L (22-29) 03/11/21 06:15 Anion Gap 15.8 (5-19) 03/11/21 06:15 BUN 12 mg/dL (6-20) 03/11/21 06:15 Creatinine 0.5 mg/dL (0.5-0.9) 03/11/21 06:15 GFR Calculation 136.0 mL/min (90-130) H 03/11/21 06:15 Glucose 169 mg/dL (65-115) H 03/11/21 06:15 Estimat Average Glucose 120 03/11/21 06:15 Hemoglobin A1c 5.8 % (4.0-6.0) 03/11/21 06:15 Calculated Osmolality 296 mOsm/kg (285-295) H 03/11/21 06:15 Lactic Acid 1.8 mmol/L (0.5-2.2) 03/10/21 13:57 Calcium 7.8 mg/dL (8.5-10.5) L 03/11/21 06:15 Magnesium 2.5 mg/dL (1.7-2.3) H 03/10/21 13:57 Iron 10 ug/dL (37-145) L 03/10/21 13:57 TIBC 263 mcg/dl 03/10/21 13:57 % Saturation 3.8 % (20-50) L 03/10/21 13:57 Unsat Iron Binding 253 ug/dL (112-347) 03/10/21 13:57 Ferritin 161 ng/mL (15-150) H 03/11/21 06:15 Total Bilirubin 0.3 mg/dL (0.15-1.2) 03/11/21 06:15 AST 23 U/L (0-32) 03/11/21 06:15 ALT 24 U/L (0-33) 03/11/21 06:15 Alkaline Phosphatase 55 IU/L (35-105) 03/11/21 06:15 Lactate Dehydrogenase 412 U/L (135-214) H 03/10/21 13:57 Creatine Kinase 51 U/L (26-192) 03/11/21 06:15 C-Reactive Protein 100.8 mg/L (0.0-4.9) H 03/11/21 06:15 NT-Pro-B Natriuret Pep 74 pg/mL (0-125) 03/11/21 06:15 Total Protein 6.3 g/dL (6.6-8.7) L 03/11/21 06:15 Albumin 3.3 g/dL (3.5-5.2) L 03/11/21 06:15 Globulin 3.0 g/dL (1.3-4.6) 03/11/21 06:15 Triglycerides 71 mg/dL (0-150) 03/11/21 06:15 Cholesterol 137 mg/dL (0-200) 03/11/21 06:15 LDL Cholesterol, Calc 82 mg/dL (50-129) 03/11/21 06:15 Total VLDL Cholesterol 14 mg/dL (0-30) 03/11/21 06:15 HDL Cholesterol 41 mg/dL (60-100) L 03/11/21 06:15 Cholesterol/HDL Ratio 3.34 mg/dL (0.0-4.40) 03/11/21 06:15 Procalcitonin 0.05 ng/mL (0-0.5) 03/10/21 13:57 TSH 1.38 uIU/mL (0.27-4.20) 03/10/21 13:57 Urine Color Red (Yellow) 03/10/21 13:54 Urine Appearance Hazy (CLEAR) A 03/10/21 13:54 Urine pH 5 (5-7) 03/10/21 13:54 Ur Specific [place] 1.015 (1.005-1.030) 03/10/21 13:54 Urine Protein 1+ (Negative) H 03/10/21 13:54 Urine Glucose (UA) Norm (Normal) 03/10/21 13:54 Urine Ketones Negative (Negative) 03/10/21 13:54 Urine Blood 3+ (Negative) H 03/10/21 13:54 Urine Nitrate Negative (Negative) 03/10/21 13:54 Urine Bilirubin Neg (Negative) 03/10/21 13:54 Urine Urobilinogen Norm mg/dL (Negative) 03/10/21 13:54 Ur Leukocyte Esterase Negative (Negative) 03/10/21 13:54 Urine RBC 15-25 /hpf (0-2) H 03/10/21 13:54 Urine WBC 0-4 /hpf (0-5) H 03/10/21 13:54 Ur Squamous Epith Cells None /hpf (0-5) 03/10/21 13:54 Amorphous Sediment Not Reportable 03/10/21 13:54 Urine Bacteria 2+ /hpf (NONE) H 03/10/21 13:54 Influenza Type A Ag Negative (Negative) 03/10/21 17:43 Influenza Type B Ag Negative (Negative) 03/10/21 17:43 SARS-CoV-2 Ag (Rapid) Negative (Negative) 03/10/21 13:07 Impressions Chest CTA 03/10/21 14:53 IMPRESSION: 1. Negative for pulmonary embolus 2. Patchy bilateral airspace opacities consistent with an infectious process. 3. Hepatic steatosis. 4. Cholecystectomy. Radiation Dose CTDIVOL = (mGy): DLP = 2341.69 (mGy-cm) Chest X-Ray 03/11/21 06:00 Impression: 1. No change in bilateral pulmonary opacities. 2. Cardiomegaly. Micro: Microbiology 03/10/21 13:57 Blood Culture - Preliminary Blood NEGATIVE TO DATE 03/10/21 13:54 Blood Culture - Preliminary Blood NEGATIVE TO DATE 03/10/21 17:43 MRSA Culture - Final Nose 03/10/21 13:54 Urine Culture - Preliminary Urine,Clean Catch 03/10/21 13:54 Bacterial Antigens - Final Urine Kidney 03/10/21 18:30 Gram Stain - Final Sputum - Expectorated Sputum 03/10/21 13:54 Legionella Urinary Antigen - Final Urethra A&P Assessment and plan (1) Respiratory failure with hypoxia: Status: Acute (2) COVID-19: Status: Acute (3) Heavy menstrual bleeding: Status: Acute Qualifiers: Menorrhagia type: with irregular cycle Qualified Code(s): N92.1 - Excessive and frequent menstruation with irregular cycle Additional A&P Information Hypoxic respiratory failure secondary to COVID-19 pneumonia: Oxygen supplementation keeping saturation 92%. Remdesivir to finish a 5-day course. Decadron 6 mg IV daily. Advair, Spiriva. Vitamin C, zinc. Pulmonary toilet with incentive spirometry and flutter valve. As patient's inflammatory markers mildly worsening, still requiring high oxygen supplementation will give 1 dose of Actemra. Check EKG prior to the dose. Low suspicion of superimposed bacterial infection. For now continue with azithromycin 500 mg daily. Check inflammatory markers including LDH, ESR, CRP, ferritin. D-dimer elevated but CTA negative for pulmonary embolism. Given abnormal heavy menstrual bleeding will hold off on giving full dose anticoagulation for now. Check echocardiogram. We will try to keep patient net negative. 20 mg IV Lasix. Strict input output charting. Daily weights. Anemia: Most likely secondary to heavy menstrual bleeding. Start on IV iron. Continue to monitor hemoglobin daily for now. Stable. Heavy menstrual bleeding: We will consult STRUCTURAL STEEL DETAILER for further assistance. Trans vaginal ultrasound done 2 weeks ago. Consistent with retroverted slightly enlarged uterus, no fibroid, mildly thickened heterogeneous endometrium. Hemoglobin stable. Post 1 dose of tranexamic acid yesterday. We will continue to monitor. Full code. GI soft regular diet. Famotidine for PUD prophylaxis. Attestations Medical Necessity Statement*: Requires further hospitalization for management of hypoxia from COVID-19 pneumonia. Time Spent in Patient Care: Greater than 35 minutes (>than 50% of time spent in counselling and/or direct pt care on unit). Coding Level of Care Code Acute Electrical Systems Engineer for Dhruv Reyes Diagnoses Respiratory failure with hypoxia J96.91 COVID-19 U07.1 Heavy menstrual bleeding N92.1 Menorrhagia type: with irregular cycle
[2021-03-11] MEDS: FUROsemide 10 mg/mL SDV 2mL 20 MG IVP (16:26)
[2021-03-11] MEDS: iron sucrose 200 MG in sodium chloride 0.9% (100 ml) 100 ML 220 MG IV (17:30)
[2021-03-11] MEDS: remdesivir 100 MG in sodium chloride 0.9% (100 ml) 100 ML IV (18:28)
[2021-03-12] VITALS (10 sets, daily range): BP systolic 104–125; BP diastolic 64–85; PULSE 58–87; RESP 16–18; TEMP 36.1–36.6; O2SAT 90–94
[2021-03-12] MEDS: famotidine 20 mg/2 mL INJ IVP (05:43)
[2021-03-12 09:20] LABS: Basophils % 0.2 %; Hematocrit 33.9 % (37.0-47.0); Hemoglobin 10.4 g/dL (11.5-15.3); Lymphocytes # 1.1 10^3/uL (0.8-4.8); Lymphocytes % 13.1 %; Mean Corpuscular HGB Conc 30.7 g/dL (30.0-36.0); Mean Corpuscular Hemoglobin 27.1 pg (28.0-34.0); Mean Corpuscular Volume 88.3 fL (81-99); Mean Platelet Volume 10.5 fL (7.4-10.4); Monocytes # 0.5 10^3/uL (0.2-0.9); Monocytes % 6.2 %; Neutrophils # 6.24 10^3/uL (1.8-7.7); Neutrophils % 76.2 %; Nucleated Red Blood Cells % 0.5 %; Platelet Count 351 10^3/cmm (130-400); Red Blood Count 3.84 10^6/uL (4.1-5.3); Red Cell Distribution Width 14.1 % (12.1-15.1); White Blood Count 8.2 10^3/uL (4.0-10.0)
[2021-03-12] MEDS: cetylpyridinium Lozenge 1 EACH MUCOUS MEM (09:23)
[2021-03-12] MEDS: zinc gluconate 50 mg Tablet PO (09:23)
[2021-03-12] MEDS: ascorbic acid 500 mg Tablet 1000 MG PO ×2 (09:23→18:17)
[2021-03-12] MEDS: benzonatate 100 mg Capsule PO ×3 (09:23→20:20)
[2021-03-12 09:40] LABS: D Dimer 0.97 ug/mIFEU (0-0.59)
[2021-03-12 09:51] LABS: Erythrocyte Sedimentation Rate 70 mm/hr (0-15)
[2021-03-12 09:58] LABS: Alanine Aminotransferase 25 U/L (0-33); Albumin Level 3.5 g/dL (3.5-5.2); Alkaline Phosphatase 63 IU/L (35-105); Anion Gap 15.1 (5-19); Aspartate Amino Transferase 15 U/L (0-32); Blood Urea Nitrogen 16 mg/dL (6-20); C Reactive Protein 31.1 mg/L (0.0-4.9); Carbon Dioxide 26 mmol/L (22-29); Chloride 107 mmol/L (98-107); Creatine Phosphokinase 28 U/L (26-192); Globulin 2.8 g/dL (1.3-4.6); Glucose 143 mg/dL (65-115); NT Pro B Type Natriuretic Pept 23 pg/mL (0-125); Osmolality Calculated 304 mOsm/kg (285-295); Potassium 3.1 mmol/L (3.5-5.1); Sodium 145 mmol/L (136-145); Total Bilirubin 0.4 mg/dL (0.15-1.2); Total Protein 6.3 g/dL (6.6-8.7)
[2021-03-12 10:08] LABS: Slide Review Slide Review Perform
[2021-03-12] MEDS: dexamethasone 4 mg/mL INJ 6 MG IVP (10:43)
[2021-03-12] MEDS: FUROsemide 10 mg/mL SDV 2mL 20 MG IVP (10:43)
[2021-03-12 11:24] LABS: Ferritin 403 ng/mL (15-150)
--- NOTE | 2021-03-12 12:31 | CTR_ITS ---
PROCEDURE INFORMATION: Exam: CTA Chest With Contrast Exam date and time: 03/12/2021 12:31 PM Age: 40 years old Clinical indication: Cough and shortness of breath; Additional info: Covid, SOB TECHNIQUE: Imaging protocol: Computed tomographic angiography of the chest with contrast. 3D rendering (Not supervised by radiologist): MIP and/or 3D reconstructed images were created by the technologist. Radiation optimization: All CT scans at this facility use at least one of these dose optimization techniques: automated exposure control; mA and/or kV adjustment per patient size (includes targeted exams where dose is matched to clinical indication); or iterative reconstruction. Contrast material: OMNI 350; Contrast volume: 60 ml; Contrast route: INTRAVENOUS (IV); COMPARISON: CT angio chest PE protcl [id number] 03/10/2021 3:13 PM RADIATION DOSE METRICS: Total DLP (mGy-cm): 523.17 FINDINGS: Pulmonary arteries: Normal. No pulmonary emboli. Aorta: Unremarkable. No aortic aneurysm. No aortic dissection. Lungs: Scattered patchy irregular ground-glass lesions throughout the lungs. Scattered areas of mild septal thickening. Negative for peripheral honeycombing. No endobronchial lesion. No bronchiectasis. Pleural spaces: Unremarkable. No pneumothorax. No pleural effusion. Heart: Unremarkable. No cardiomegaly. No pericardial effusion. Lymph nodes: Unremarkable. No enlarged lymph nodes. Bones/joints: Unremarkable. No acute fracture. Soft tissues: Unremarkable. CT/CT angio chest PE protcl [id number] IMPRESSION: 1. Negative for pulmonary embolism. 2. Patchy widely distributed ground-glass airspace disease. Nonspecific pattern and distribution. 3. Imaging features can be seen with COVID-19 pneumonia, though are nonspecific and can occur with a variety of infectious and noninfectious processes. (Reference: Macho) REFERENCES: Macho Richey, et al., Radiological Society of [place] Expert Consensus Statement on Reporting Chest CT Findings Related to COVID-19. Endorsed by the Society of Thoracic Radiology, the [place] [employer], and RSNA. Published November 20, 2019. Radiation Dose CTDIVOL = (mGy): DLP = 523.17 (mGy-cm)
--- NOTE | 2021-03-12 13:04 | P.PN_ITS ---
Subjective Subjective: Interval history: Overnight patient was transitioned over to 7 L high flow nasal cannula to maintain saturation over 90%. Patient seen twice today morning. On the first visit patient was in the restroom without her oxygen complaining of difficulty breathing. On review visit patient was on 6 L high flow nasal cannula saturating 92%. Patient was educated on need to be on oxygen supplementation continuously for now. Patient was also counseled and educated again in detail the need for incentive spirometry and flutter valve. Denies any nausea vomiting, headache. Yesterday was complaining of mild throat pain during swallowing with one episode of choking sensation for which was kept n.p.o. Today morning states she is not having any similar complaints and will try to eat meals again. States he is a little better as compared to before. Because of worsening respiratory status it was discussed with patient that with COVID-19 pneumonia patient has a higher chance of clotting and even pulmonary embolism for which she should be on a blood thinner which has been avoided for now because of ongoing menorrhagia. We discussed the risk factors versus benefits of being on anticoagulation for now. Patient is agreeable for anticoagulation for now. She also understands if she has ongoing menorrhagia which worsens or hemoglobin below 9 she will need more blood transfusion and may be gynecology intervention of uterine tamponade. Patient verbalized understanding. Vitals/I&O/Wt Last Vital Signs Temp 97.5 F L 03/12/21 12:00 Pulse 69 03/12/21 12:00 Resp 18 03/12/21 12:00 BP 104/73 03/12/21 12:00 Pulse Ox 93 03/12/21 12:00 03/11/21 03/12/21 03/12/21 22:59 06:59 14:59 Intake Total 645.833 / 1040.000 150 / 1190.000 Balance 645.833 / 1040.000 150 / 1190.000 Weight last 48 hrs Weight 144.242 kg Weight 144.242 kg Physical Exam Narrative: EXAM NARRATIVE: General: In distress because of difficulty in breathing, AOx3, morbidly obese. HEENT: PERRLA, pupils bilateral equal and reactive Chest: Bilateral diminished breath sounds, occasional rhonchi present all over lung hall CVS: S1-S2 regular, no murmurs, no tachycardia, no gallops, no rubs Abdomen: Soft, nontender, no organomegaly, bowel sounds present Neuro: No focal deficits, no facial deformity, AO x3, power 5/5 in all limbs Data : 03/12/21 09:10 03/12/21 09:10 Micro: Microbiology 03/10/21 18:30 Gram Stain - Final Sputum - Expectorated Sputum Sputum Culture - Preliminary 03/10/21 13:54 Urine Culture - Final Urine,Clean Catch 03/10/21 13:57 Blood Culture - Preliminary Blood NEGATIVE TO DATE 03/10/21 13:54 Blood Culture - Preliminary Blood NEGATIVE TO DATE 03/10/21 17:43 MRSA Culture - Final Nose 03/10/21 13:54 Bacterial Antigens - Final Urine Kidney A&P Assessment and plan (1) Respiratory failure with hypoxia: Status: Acute (2) COVID-19: Status: Acute (3) Heavy menstrual bleeding: Status: Acute Qualifiers: Menorrhagia type: with irregular cycle Qualified Code(s): N92.1 - Excessive and frequent menstruation with irregular cycle Additional A&P Information Hypoxic respiratory failure secondary to COVID-19 pneumonia: Oxygen supplementation keeping saturation 92%. Post 1 dose of Actemra on March 11. Remdesivir to finish a 5-day course. Decadron 6 mg IV daily. Advair, Spiriva. Vitamin C, zinc. Pulmonary toilet with incentive spirometry and flutter valve. Patient's D-dimer was elevated but CT was negative for pulmonary embolism. Patient has menorrhagia but her hemoglobin has remained stable. Given worsening respiratory status benefits versus risk factor of anticoagulation were discussed with her and she is agreeable for anticoagulation for now. Repeat CTA to rule out active pulmonary embolism. If negative will start her on heparin prophylaxis. Low suspicion of superimposed bacterial infection. For now continue with azithromycin 500 mg daily. Check inflammatory markers including LDH, ESR, CRP, ferritin. Repeat Lasix 20 mg IV stat. Plan to keep patient as negative as possible. Echocardiogram results appreciated. Strict input output charting. Daily weights. Anemia: Most likely secondary to heavy menstrual bleeding. Start on IV iron. Day 3/5 today. Continue to monitor hemoglobin daily for now. Stable. Heavy menstrual bleeding: We will consult MANAGER SUSTAINABILITY for further assistance. Trans vaginal ultrasound done 2 weeks ago. Consistent with retroverted slightly enlarged uterus, no fibroid, mildly thickened heterogeneous endometrium. Hemoglobin stable. Post 1 dose of tranexamic acid yesterday. We will continue to monitor. Starting on anticoagulation today will decide about prophylactic versus therapeutic as per CT results. Case discussed with Dr. Calabrese from MANAGER SUSTAINABILITY. Appreciate his recommendations. We will continue to monitor hemoglobin. If worsening or of worsening menorrhagia will consult MANAGER SUSTAINABILITY for possible uterine tamponade. Patient is agreeable. Full code. GI soft regular diet. Famotidine for PUD prophylaxis. Attestations Medical Necessity Statement*: Requires further hospitalization for management of hypoxic respiratory failure from COVID-19 pneumonia, ongoing menorrhagia. Time Spent in Patient Care: Greater than 35 minutes (>than 50% of time spent in counselling and/or direct pt care on unit) . Coding Level of Care Code Acute Wind Up Worker for kane Reyes Diagnoses Respiratory failure with hypoxia J96.91 COVID-19 U07.1 Heavy menstrual bleeding N92.1 Menorrhagia type: with irregular cycle
[2021-03-12] MEDS: potassium chloride ER 20 mEq Tablet 40 MEQ PO (14:48)
[2021-03-12] MEDS: heparin 5,000 unit/mL INJ 1 mL 5000 UNIT SUBCUT ×2 (14:48→20:20)
[2021-03-12] MEDS: iohexol 350 mg/mL 100 mL Btl IV (17:22)
[2021-03-12] MEDS: iron sucrose 200 MG in sodium chloride 0.9% (100 ml) 100 ML 220 MG IV (18:17)
[2021-03-12] MEDS: azithromycin 500 MG in sodium chloride 0.9% 250 ML 250 MG IV (18:17)
[2021-03-12] MEDS: remdesivir 100 MG in sodium chloride 0.9% (100 ml) 100 ML IV (19:02)
--- NOTE | 2021-03-12 20:29 | PC.NURSE ---
pt stated she has only had to change her tampon 3 times today. she also states yesterday she changed it 4 times yesterday.
[2021-03-13] VITALS (13 sets, daily range): BP systolic 102–137; BP diastolic 61–91; PULSE 64–98; RESP 16–20; TEMP 36.4–36.7; O2SAT 88–97
--- NOTE | 2021-03-13 00:29 | PC.RESP ---
Patient sats dropped to 80% on 9LPM HFNC. Therapist put patient on her side due to patient telling RT that she could not prone. Dr. Castillo was called after therapist put patient on 14LPM HFNC sats of 87%. Patient was talked into proning and with successful proning by nurse and RT, patients oxygen was able to be turned down to 6LPM HFNC with sats of 94%.
--- NOTE | 2021-03-13 06:00 | XRR_ITS ---
PROCEDURE INFORMATION: Exam: XR Chest Exam date and time: 03/13/2021 6:00 AM Age: 40 years old Clinical indication: Shortness of breath; Additional info: Covid TECHNIQUE: Imaging protocol: XR of the chest. Views: 1 view. COMPARISON: CR XR chest 1V portable [id number] 03/11/2021 6:42 AM FINDINGS: Lungs: There are bilateral interstitial pulmonary infiltrates which have not significantly changed. Pleural spaces: Unremarkable. No pleural effusion. No pneumothorax. Heart/Mediastinum: Unremarkable. No cardiomegaly. Bones/joints: Unremarkable. XR/XR chest 1V portable [id number] IMPRESSION: Bilateral pulmonary interstitial infiltrates unchanged.
[2021-03-13] MEDS: famotidine 20 mg/2 mL INJ IVP ×2 (06:17→19:48)
[2021-03-13] MEDS: heparin 5,000 unit/mL INJ 1 mL 5000 UNIT SUBCUT ×3 (06:17→20:52)
[2021-03-13] MEDS: ascorbic acid 500 mg Tablet 1000 MG PO ×2 (09:16→18:23)
[2021-03-13] MEDS: zinc gluconate 50 mg Tablet PO (09:16)
[2021-03-13] MEDS: ibuprofen 800 mg tablet PO ×3 (09:17→20:52)
[2021-03-13] MEDS: benzonatate 100 mg Capsule PO ×3 (09:17→20:53)
[2021-03-13] MEDS: dexamethasone 4 mg/mL INJ 6 MG IVP (10:08)
[2021-03-13 13:55] LABS: D Dimer 0.94 ug/mIFEU (0-0.59)
[2021-03-13] MEDS: azithromycin 500 MG in sodium chloride 0.9% 250 ML 250 MG IV (13:57)
[2021-03-13 14:14] LABS: C Reactive Protein 10.7 mg/L (0.0-4.9); Creatine Phosphokinase 24 U/L (26-192); Ferritin 655 ng/mL (15-150); NT Pro B Type Natriuretic Pept 10 pg/mL (0-125)
[2021-03-13 14:31] LABS: Erythrocyte Sedimentation Rate 45 mm/hr (0-15)
--- NOTE | 2021-03-13 15:18 | PM.PN ---
Subjective Subjective: Interval history: No events overnight. On examination patient sitting comfortably in bed. On high flow 5 L saturating 92%. Denies any nausea vomiting, headache. Working better with incentive spirometry and flutter valve. States she is feeling very weak and tired today. Denies any headache. Appetite appropriate. States menorrhagia is stable. Vitals/I&O/Wt Last Vital Signs Temp 98.1 F 03/13/21 11:54 Pulse 90 03/13/21 11:54 Resp 20 H 03/13/21 11:54 BP 110/70 03/13/21 11:54 Pulse Ox 92 03/13/21 11:54 03/13/21 03/13/21 03/13/21 06:59 14:59 22:59 Intake Total 120 / 120 Output Total 400 / 1400 Balance -400 / -140 120 / 120 Weight last 48 hrs Weight 134.745 kg Physical Exam Narrative: EXAM NARRATIVE: General: In distress because of difficulty in breathing, AOx3, morbidly obese. HEENT: PERRLA, pupils bilateral equal and reactive Chest: Bilateral diminished breath sounds, occasional rhonchi present all over lung hall CVS: S1-S2 regular, no murmurs, no tachycardia, no gallops, no rubs Abdomen: Soft, nontender, no organomegaly, bowel sounds present Neuro: No focal deficits, no facial deformity, AO x3, power 5/5 in all limbs Urinary Catheter Management^: Alejo: Cath Placed During This Visit: yes Reason for Continuing Indwelling Catheter: Accurate Measurement of Urinary Output in Critically Ill Patients Urinary Catheter Date of Insertion: 03/12/21 Urinary Catheter Time of Insertion: 17:00 Data : 03/12/21 09:10 03/12/21 09:10 Micro: Microbiology 03/10/21 18:30 Gram Stain - Final Sputum - Expectorated Sputum Sputum Culture - Final A&P Assessment and plan (1) Respiratory failure with hypoxia: Status: Acute (2) COVID-19: Status: Acute (3) Heavy menstrual bleeding: Status: Acute Qualifiers: Menorrhagia type: with irregular cycle Qualified Code(s): N92.1 - Excessive and frequent menstruation with irregular cycle Additional A&P Information Hypoxic respiratory failure secondary to COVID-19 pneumonia: Oxygen supplementation keeping saturation 92%. Post 1 dose of Actemra on March 11. Remdesivir to finish a 5-day course. Decadron 6 mg IV daily. Advair, Spiriva. Vitamin C, zinc. Pulmonary toilet with incentive spirometry and flutter valve. Prone to semiprone when possible and laying in bed. Patient's D-dimer was elevated but CT was negative for pulmonary embolism. Patient has menorrhagia but her hemoglobin has remained stable. Given worsening respiratory status benefits versus risk factor of anticoagulation were discussed with her and she is agreeable for anticoagulation for now. CTA negative for pulmonary embolism. Continue with heparin at prophylactic dose. Low suspicion of superimposed bacterial infection. For now continue with azithromycin 500 mg daily to finish a 5-day course. Check inflammatory markers including LDH, ESR, CRP, ferritin. Currently improving. Echocardiogram results appreciated. Hold off on any further Lasix today. Strict input output charting. Daily weights. Anemia: Most likely secondary to heavy menstrual bleeding. Start on IV iron. Day 4/5 today. Continue to monitor hemoglobin daily for now. Stable. Heavy menstrual bleeding: We will consult DIGITAL ACCOUNT COORDINATOR for further assistance. Trans vaginal ultrasound done 2 weeks ago. Consistent with retroverted slightly enlarged uterus, no fibroid, mildly thickened heterogeneous endometrium. Hemoglobin stable. Post 1 dose of tranexamic acid yesterday. We will continue to monitor. Starting on anticoagulation today will decide about prophylactic versus therapeutic as per CT results. Case discussed with Dr. Calabrese from DIGITAL ACCOUNT COORDINATOR. Appreciate his recommendations. We will continue to monitor hemoglobin. If worsening or of worsening menorrhagia will consult DIGITAL ACCOUNT COORDINATOR for possible uterine tamponade. Patient is agreeable. Full code. GI soft regular diet. Famotidine for PUD prophylaxis. Attestations Medical Necessity Statement*: Requires further hospitalization for management of hypoxic respiratory failure secondary COVID-19 pneumonia, requiring high flow Time Spent in Patient Care: Greater than 35 minutes (>than 50% of time spent in counselling and/or direct pt care on unit). Coding Level of Care Code Acute Inspector And Tester for [facility]yes Diagnoses Respiratory failure with hypoxia J96.91 COVID-19 U07.1 Heavy menstrual bleeding N92.1 Menorrhagia type: with irregular cycle
[2021-03-13] MEDS: iron sucrose 200 MG in sodium chloride 0.9% (100 ml) 100 ML 220 MG IV (15:39)
--- NOTE | 2021-03-13 18:00 | PC.NURSE ---
dr inquired as to how many pads the pt had been using through the day, with special consideration to the fact that the patient had been started on subq heparin. when asked the pt told this nurse that she had been using tampons for the duration of her stay thus far d/t the fact that she left quickly with EMS without underwear and only a box of tampons. this nurse provided the pt with mesh several pairs of mesh underwear and pads. she had just changed her tampon and said that she would change into the pad and mesh underwear next time it needed to be changed. later that day when asked, the pt had not done as stated but used another tampon instead. pt was educated on why it was medically important to be using pads vs tampons with consideration to her heavy blood flow and the heparin shot. she verbalized understanding and stated that she would change before bedtime. 1929 patient did go through two super plus absorbency tampons in a 12h shift, which she stated was still the same. upon last rounding at shift change she did state that it had let up and there was barely any blood at all.
[2021-03-13] MEDS: remdesivir 100 MG in sodium chloride 0.9% (100 ml) 100 ML IV (18:24)
[2021-03-14] VITALS (10 sets, daily range): BP systolic 121–132; BP diastolic 73–88; PULSE 52–90; RESP 14–18; TEMP 36.3–36.7; O2SAT 93–96
[2021-03-14] MEDS: heparin 5,000 unit/mL INJ 1 mL 5000 UNIT SUBCUT ×3 (04:52→21:48)
[2021-03-14] MEDS: famotidine 20 mg/2 mL INJ IVP ×2 (04:52→18:52)
[2021-03-14 07:13] LABS: Basophils % 0.4 %; Eosinophils % 0.1 %; Hematocrit 32.3 % (37.0-47.0); Hemoglobin 9.6 g/dL (11.5-15.3); Lymphocytes # 1.5 10^3/uL (0.8-4.8); Lymphocytes % 16.1 %; Mean Corpuscular HGB Conc 29.7 g/dL (30.0-36.0); Mean Corpuscular Hemoglobin 26.8 pg (28.0-34.0); Mean Corpuscular Volume 90.2 fL (81-99); Mean Platelet Volume 10.6 fL (7.4-10.4); Monocytes # 0.6 10^3/uL (0.2-0.9); Monocytes % 6.3 %; Neutrophils # 6.69 10^3/uL (1.8-7.7); Nucleated Red Blood Cells # 0.2 /100WBC; Nucleated Red Blood Cells % 1.9 %; Platelet Count 444 10^3/cmm (130-400); Red Blood Count 3.58 10^6/uL (4.1-5.3); White Blood Count 9.4 10^3/uL (4.0-10.0)
[2021-03-14 07:37] LABS: Alanine Aminotransferase 21 U/L (0-33); Albumin Level 3.2 g/dL (3.5-5.2); Alkaline Phosphatase 55 IU/L (35-105); Anion Gap 12.4 (5-19); Aspartate Amino Transferase 17 U/L (0-32); Blood Urea Nitrogen 18 mg/dL (6-20); C Reactive Protein 5.8 mg/L (0.0-4.9); Calcium 7.7 mg/dL (8.5-10.5); Carbon Dioxide 25 mmol/L (22-29); Chloride 105 mmol/L (98-107); Ferritin 634 ng/mL (15-150); Globulin 2.4 g/dL (1.3-4.6); Glomerular Filtration Rate 175.9 mL/min (90-130); Glucose 148 mg/dL (65-115); Osmolality Calculated 293 mOsm/kg (285-295); Potassium 3.4 mmol/L (3.5-5.1); Sodium 139 mmol/L (136-145); Total Bilirubin 0.4 mg/dL (0.15-1.2); Total Protein 5.6 g/dL (6.6-8.7)
[2021-03-14 08:19] LABS: Erythrocyte Sedimentation Rate 31 mm/hr (0-15)
[2021-03-14 09:19] LABS: Neutrophils % 77.1 %
[2021-03-14] MEDS: zinc gluconate 50 mg Tablet PO (09:34)
[2021-03-14] MEDS: ibuprofen 800 mg tablet PO ×3 (09:34→21:48)
[2021-03-14] MEDS: ascorbic acid 500 mg Tablet 1000 MG PO ×2 (09:34→18:06)
[2021-03-14] MEDS: benzonatate 100 mg Capsule PO ×3 (09:35→21:48)
[2021-03-14] MEDS: dexamethasone 4 mg/mL INJ 6 MG IVP (09:58)
--- NOTE | 2021-03-14 13:24 | PM.PN ---
Subjective Subjective: Interval history: No acute events overnight. On examination today sitting up in chair. States feeling better. Feeling nervous about the oxygen levels. Currently on 5 L nasal cannula. During examination turned down to 4 L and saturating well over 92%. States menorrhagia is improving now. Denies any nausea, vomiting, headache, dizziness. Appetite appropriate. Vitals/I&O/Wt Last Vital Signs Temp 98.0 F 03/14/21 12:00 Pulse 90 03/14/21 12:00 Resp 18 03/14/21 12:00 BP 123/73 03/14/21 12:00 Pulse Ox 93 03/14/21 12:00 03/13/21 03/14/21 03/14/21 22:59 06:59 14:59 Intake Total 690 / 1300 Output Total 400 / 400 150 / 550 Balance 290 / 900 -150 / 750 Weight last 48 hrs Weight 137.575 kg Weight 134.745 kg Physical Exam Narrative: EXAM NARRATIVE: General: In distress because of difficulty in breathing, AOx3, morbidly obese. HEENT: PERRLA, pupils bilateral equal and reactive Chest: Bilateral diminished breath sounds, occasional rhonchi present all over lung hall CVS: S1-S2 regular, no murmurs, no tachycardia, no gallops, no rubs Abdomen: Soft, nontender, no organomegaly, bowel sounds present Neuro: No focal deficits, no facial deformity, AO x3, power 5/5 in all limbs Urinary Catheter Management^: Alejo: Cath Placed During This Visit: yes Reason for Continuing Indwelling Catheter: Accurate Measurement of Urinary Output in Critically Ill Patients Urinary Catheter Date of Insertion: 03/12/21 Urinary Catheter Time of Insertion: 17:00 Data : 03/14/21 06:31 03/14/21 06:31 Micro: Microbiology 03/10/21 18:30 Gram Stain - Final Sputum - Expectorated Sputum Sputum Culture - Final A&P Assessment and plan (1) Respiratory failure with hypoxia: Status: Acute (2) COVID-19: Status: Acute (3) Heavy menstrual bleeding: Status: Acute Qualifiers: Menorrhagia type: with irregular cycle Qualified Code(s): N92.1 - Excessive and frequent menstruation with irregular cycle Additional A&P Information Hypoxic respiratory failure secondary to COVID-19 pneumonia: Oxygen supplementation keeping saturation 92%. Post 1 dose of Actemra on March 11. Remdesivir to finish a 5-day course. Decadron 6 mg IV daily. Advair, Spiriva. Vitamin C, zinc. Pulmonary toilet with incentive spirometry and flutter valve. Prone to semiprone when possible and laying in bed. Patient's D-dimer was elevated but CT was negative for pulmonary embolism. Patient has menorrhagia but her hemoglobin has remained stable. Given worsening respiratory status benefits versus risk factor of anticoagulation were discussed with her and she is agreeable for anticoagulation for now. CTA negative for pulmonary embolism. Continue with heparin at prophylactic dose. Low suspicion of superimposed bacterial infection. For now continue with azithromycin 500 mg daily to finish a 5-day course. Check inflammatory markers including LDH, ESR, CRP, ferritin. Currently improving. Echocardiogram results appreciated. Plan to keep negative as possible. Lasix 20 mg once. Strict input output charting. Daily weights. Anemia: Most likely secondary to heavy menstrual bleeding. Start on IV iron. Day 4/5 today. Continue to monitor hemoglobin daily for now. Stable. Heavy menstrual bleeding: Improving now. Hemoglobin has remained stable. Trans vaginal ultrasound done 2 weeks ago. Consistent with retroverted slightly enlarged uterus, no fibroid, mildly thickened heterogeneous endometrium. Hemoglobin stable. Post 1 dose of tranexamic acid yesterday. We will continue to monitor. Starting on anticoagulation today will decide about prophylactic versus therapeutic as per CT results. Case discussed with Dr. Calabrese from CLINICAL RESEARCH PHYSICIAN. Appreciate his recommendations. We will continue to monitor hemoglobin. If worsening or of worsening menorrhagia will consult CLINICAL RESEARCH PHYSICIAN for possible uterine tamponade. Patient is agreeable. Full code. GI soft regular diet. Famotidine for PUD prophylaxis. Attestations Medical Necessity Statement*: Requires further hospitalization for hypoxic respiratory failure secondary to COVID-19 pneumonia, menorrhagia. Time Spent in Patient Care: Greater than 35 minutes (>than 50% of time spent in counselling and/or direct pt care on unit). Coding Level of Care Code Acute Liquor Grinding Mill Operator for [facility] Diagnoses Respiratory failure with hypoxia J96.91 COVID-19 U07.1 Heavy menstrual bleeding N92.1 Menorrhagia type: with irregular cycle
[2021-03-14] MEDS: azithromycin 500 MG in sodium chloride 0.9% 250 ML 250 MG IV (14:04)
[2021-03-14] MEDS: FUROsemide 20 mg Tablet PO (14:05)
[2021-03-14] MEDS: remdesivir 100 MG in sodium chloride 0.9% (100 ml) 100 ML IV (18:06)
[2021-03-14] MEDS: iron sucrose 200 MG in sodium chloride 0.9% (100 ml) 100 ML 220 MG IV (19:14)
[2021-03-15] VITALS (14 sets, daily range): BP systolic 114–129; BP diastolic 78–84; PULSE 48–104; RESP 18–20; TEMP 36.5–37.1; O2SAT 87–96
[2021-03-15] MEDS: famotidine 20 mg/2 mL INJ IVP ×2 (04:24→18:21)
[2021-03-15] MEDS: heparin 5,000 unit/mL INJ 1 mL 5000 UNIT SUBCUT ×2 (04:53→13:31)
--- NOTE | 2021-03-15 06:00 | XRR_ITS ---
PROCEDURE INFORMATION: Exam: XR Chest Exam date and time: 03/15/2021 6:00 AM Age: 40 years old Clinical indication: Condition or disease; Other: Covid TECHNIQUE: Imaging protocol: XR of the chest. Views: 1 view. COMPARISON: CR (CHEST, ) 03/13/2021 8:06 AM FINDINGS: Lungs: Interstitial prominence and asymmetric left-sided airspace disease in the setting of reported COVID pneumonitis. Pleural spaces: No significant pleural effusion. Heart/Mediastinum: Cardiac silhouette upper limits of normal size. Diaphragm: Hypoinflation with asymmetric elevation of the right hemidiaphragm. Bones/joints: Unremarkable. XR/XR chest 1V portable [id number] IMPRESSION: Interstitial prominence and asymmetric left-sided airspace disease in the setting of reported COVID pneumonitis.
[2021-03-15 06:53] LABS: Hematocrit 30.1 % (37.0-47.0); Hemoglobin 9.4 g/dL (11.5-15.3); Mean Corpuscular HGB Conc 31.2 g/dL (30.0-36.0); Mean Corpuscular Hemoglobin 27.3 pg (28.0-34.0); Mean Corpuscular Volume 87.5 fL (81-99); Mean Platelet Volume 10.2 fL (7.4-10.4); Platelet Count 395 10^3/cmm (130-400); Red Blood Count 3.44 10^6/uL (4.1-5.3); Red Cell Distribution Width 14.1 % (12.1-15.1); White Blood Count 10.2 10^3/uL (4.0-10.0)
[2021-03-15 07:14] LABS: Alanine Aminotransferase 20 U/L (0-33); Albumin Level 3.1 g/dL (3.5-5.2); Alkaline Phosphatase 54 IU/L (35-105); Anion Gap 12.4 (5-19); Aspartate Amino Transferase 12 U/L (0-32); Blood Urea Nitrogen 16 mg/dL (6-20); C Reactive Protein 2.9 mg/L (0.0-4.9); Calcium 7.7 mg/dL (8.5-10.5); Carbon Dioxide 25 mmol/L (22-29); Chloride 107 mmol/L (98-107); Ferritin 618 ng/mL (15-150); Globulin 2.1 g/dL (1.3-4.6); Glomerular Filtration Rate 175.9 mL/min (90-130); Glucose 123 mg/dL (65-115); Osmolality Calculated 295 mOsm/kg (285-295); Potassium 3.4 mmol/L (3.5-5.1); Sodium 141 mmol/L (136-145); Total Bilirubin 0.3 mg/dL (0.15-1.2); Total Protein 5.2 g/dL (6.6-8.7)
[2021-03-15 07:54] LABS: Slide Review Slide Review Perform
[2021-03-15 07:56] LABS: Absolute Segmented Neutrophil 7.5 10/cmm (1.6-7.1); Band Neutrophils Absolute 0.6 10^3/cmm (0.0-1.2); Lymphocytes 16 %; Polychromasia 1+; Segmented Neutrophils 74 %; Total Cells Counted 100 (0-100)
[2021-03-15 07:57] LABS: Absolute Neutrophil 8.2 10^3/cmm (1.4-6.5); Eosinophils 0 %; Lymphocytes Absolute 1.6 10^3/cmm (1.2-3.4); Platelet Estimate Normal (Normal)
[2021-03-15 09:28] LABS: Erythrocyte Sedimentation Rate 21 mm/hr (0-15)
[2021-03-15] MEDS: dexamethasone 4 mg/mL INJ 6 MG IVP (10:35)
[2021-03-15] MEDS: zinc gluconate 50 mg Tablet PO (11:09)
[2021-03-15] MEDS: ibuprofen 800 mg tablet PO ×2 (11:09→14:59)
[2021-03-15] MEDS: ascorbic acid 500 mg Tablet 1000 MG PO ×2 (11:09→17:37)
[2021-03-15] MEDS: benzonatate 100 mg Capsule PO ×2 (11:09→14:59)
[2021-03-15] MEDS: azithromycin 500 MG in sodium chloride 0.9% 250 ML 250 MG IV (13:31)
[2021-03-15] MEDS: iron sucrose 200 MG in sodium chloride 0.9% (100 ml) 100 ML 220 MG IV (15:31)
--- NOTE | 2021-03-15 16:38 | PM.DCS ---
Discharge Providers Date of Admission: 03/10/21 16:42 Date of Discharge: March 15, 2021 Attending Provider at Admission: Javier Hutchinson MD Attending Provider at Discharge: Bandar Pichardo Primary Care Provider: AMAYA Christianson Diagnoses at Discharge Discharge Diagnosis (1) Respiratory failure with hypoxia: Status: Acute (2) COVID-19: Status: Acute (3) Heavy menstrual bleeding: Status: Acute Qualifiers: Menorrhagia type: with irregular cycle Qualified Code(s): N92.1 - Excessive and frequent menstruation with irregular cycle Reason for Visit Reason for Visit: COVID Hospital Course Hospital Course Pleasant 40-year-old lady with history of abnormal uterine bleeding following with gynecology, was admitted for assessment management of persistent flulike symptoms with fevers, runny nose, headache, dizziness, all starting around February 28. Tested positive for COVID-19 on March 05 in urgent care. Was admitted and treated for severe COVID-19 infection, with acute respiratory failure with hypoxia, saturation down to 71% on room air. Required 5 L of oxygen by nasal cannula at presentation, subsequently oxygen requirement increased up to 9 and then as high as 14 L. Received treatment with remdesivir, Decadron, empirically treated for possible superimposed bacterial infection with azithromycin. Advair, Spiriva. Oxygen support. Other supportive care. D-dimer noted with abnormality at presentation, 1.16. CT angiogram of the chest negative for PE. Patchy groundglass airspace disease secondary to COVID-19 pneumonia. Other process could not be excluded. She was additionally assessed by echocardiography with finding of normal ejection fraction, no pericardial effusion. No significant valvular abnormality. Hospitalization was complicated by heavy menstrual bleeding. She was noted to be deficient in iron. Received a dose of tranexamic acid after discussion with gynecology. She is continued on iron supplementation. Overall bleeding has been subsiding, however, is asked to follow-up with gynecology given persistent problem. Overall her clinical condition has gradually improved. Oxygenation has noted has been improving. She is currently down to 4 L nasal cannula. She is getting up to chair, ambulating to the commode. Feels better. Denies headache, nausea vomiting or diarrhea. Appetite is improving, and she feels is currently very good. At this time she is requiring oxygen 4 L. She is feeling safe to return home. As per discussion she understands to seek medical attention given possible fluctuating course of illness and a number of possible complications. Given she is overall improving, does not have known underlying bruise posing risk factor of VTE, D-dimer there is less than 2 times upper normal, and has had recent bleeding with anemia risk of VTE with COVID-19 was discussed, however, due to anemia and bleeding she will not be discharging with knee VTE prophylaxis. She is encouraged to seek vaccination for COVID-19 after she recovers from acute illness. Physical Exam Const: COMMON NORMALS: no acute distress and patient oriented x3 NUTRITIONAL APPEARANCE: obese morbidly obese OTHER: She is awake, alert, sitting up in bed. Comfortable with nasal cannula on. Pleasant, conversant. In good spirits. Feels good about returning home. HENMT: COMMON NORMALS: oropharynx normal Neck/C-Spine: COMMON NORMALS: no JVD Resp: COMMON NORMALS: normal respiratory effort and clear to auscultation bilaterally EFFORT & INSPECTION: Yes able to speak in complete sentences AUSCULTATION: clear to auscultation bilaterally Cardio: COMMON NORMALS: no JVD, regular rhythm, S1 normal heart sound present, S2 normal heart sound present and No murmurs present (Cardio) RHYTHM: regular rhythm HEART SOUNDS: S1 normal heart sound present and S2 normal heart sound present GI: COMMON NORMALS: Normal to inspection, nondistended, normoactive bowel sounds present, Soft to palpation and non-tender PALPATION: Yes Soft to palpation Extremity: COMMON NORMALS: no joint enlargement and no pedal edema Neuro: COMMON NORMALS: patient oriented x3 and moves all extremities Skin: COMMON NORMALS: no rashes or lesions noted GENERAL SKIN EXAM: no rashes or lesions noted Urinary Catheter Management^: Alejo: Cath Placed During This Visit: yes, but has since been removed by the nurse Reason for Continuing Indwelling Catheter: Decision to DC Catheter Urinary Catheter Date of Insertion: 03/12/21 Urinary Catheter Time of Insertion: 17:00 Date Urinary Catheter Removed: 03/14/21 Time Urinary Catheter Discontinued: 14:20 Discharge Data Data Completed and Pending: Completed Studies During Hospitalization Category Date Time Status CT angio chest PE protcl [id number] Stat Cat Scan 03/10/21 14:[address] angio chest PE protcl [id number] Urge nt Cat Scan 03/12/21 12:31 Completed XR chest 1V dougie ble [id number] Q48H Exams 03/11/21 06:00 Completed XR chest 1V dougie ble [id number] Q48H Exams 03/13/21 06:00 Completed XR chest 1V dougie ble [id number] Q48H Exams 03/15/21 06:00 Completed XR chest 1V dougie ble [id number] Stat Exams 03/10/21 12:33 Completed CV. echo complete * [id number] Routine Ultrasound 03/11/21 05:00 Completed Pending at discharge Category Date Time Status C Reactive Protei n AM LABS Lab 03/16/21 04:00 Ordered Erythrocyte Sedim entation Rate AM L ABS Lab 03/16/21 04:00 Ordered Ferritin AM LABS Lab 03/16/21 04:00 Ordered Labs from last 24 hours 03/15/21 03/15/21 03/15/21 06:38 06:38 06:38 WBC 10.2 H RBC 3.44 L Hgb 9.4 L Hct 30.1 L MCV 87.5 MCH 27.3 L MCHC 31.2 RDW 14.1 Plt Count 395 MPV 10.2 Lymph % (Auto) Not Reportable Travis % (Auto) Not Reportable Lymph # (Auto) Not Reportable Travis # (Auto) Not Reportable Total Counted 100 Atypical Lymphs % 0.0 Absolute Neutrophi ls 8.2 H Segmented Neutroph ils 74 Abs Segm Neuts (Ma n) 7.5 H Band Neutrophils 6.0 Abs Band Neuts (Ma n) 0.6 Absolute Lymphocyt es 1.6 Lymphocytes (Manua l) 16 Monocytes (Manual) 0.0 Absolute Monocytes 0.0 L Eosinophils (Manua l) 0 Absolute Eosinophi ls 0.0 Basophils (Manual) 0.0 Absolute Basophils 0.0 Metamyelocytes 3.0 Myelocytes 1.0 Nucleated RBCs 3.0 H Platelet Estimate Normal Polychromasia 1+ H ESR 21 H Sodium 141 Potassium 3.4 L Chloride 107 Carbon Dioxide 25 Anion Gap 12.4 BUN 16 Creatinine 0.4 L GFR Calculation 175.9 H Glucose 123 H Calculated Osmolal ity 295 Calcium 7.7 L Ferritin 618 H Total Bilirubin 0.3 AST 12 ALT 20 Alkaline Phosphata se 54 C-Reactive Protein 2.9 Total Protein 5.2 L Albumin 3.1 L Globulin 2.1 Vitals: Last Vital Signs Temp 97.9 F 03/15/21 12:00 Pulse 70 03/15/21 12:00 Resp 20 H 03/15/21 12:00 BP 129/79 03/15/21 12:00 Pulse Ox 94 03/15/21 12:00 Discharge Plan Discharge Patient Disposition: Home Condition: Stable Prescriptions: New ferrous sulfate [Iron (ferrous sulfate)] 325 mg (65 mg iron) tablet 325 mg PO EVERY OTHER DAY Qty: 45 RF: 0 benzonatate 100 mg Capsule 100 mg PO TID PRN (Reason: Cough) Qty: 30 RF: 3 Continued escitalopram oxalate [Lexapro] 20 mg tablet 20 mg PO BEDTIME RF: 0 Tylenol Extra Strength 500 mg Tablet 1,000 mg PO PRN RF: 0 promethazine 25 mg tablet 25 mg PO Q6H PRN (Reason: Nausea And Vomiting) RF: 0 ibuprofen 200 mg Tablet 400 - 600 mg PO PRN RF: 0 Discontinued levofloxacin 500 mg tablet 500 mg PO DAILY RF: 0 Discharge Orders: Discharge Order (Routine); Ordered 03/15/21 Ordered By: Bandar Pichardo Other Ambulatory Orders: DME: Oxygen (Order) Location: None Selected Ordered By: Bandar Pichardo Referrals: Pacheco Calabrese MD [Physician] - 4-7 days Chanel Brock FNP [Primary Care Provider] - 4-7 days Discharge Activity: Increase activity as tolerated and Oxygen as instructed Activity Restrictions/Additional Instructions: Please continue to monitor oxygenation at home. Target saturation 90-92% or above, if remaining persistently low, increase oxygen flow. Oxygen saturation may temporarily decrease with exertion, however, should improve with increasing oxygen flow, and rest. If not improving, and persistently below 88-90%, seek medical attention. Similarly if experiencing any severe fatigue, fainting, chest pain, or other concerning symptoms. Seek medical attention as per discussion of possibly fluctuating course of illness observed in some patients. Otherwise increase mobility as tolerating to reduce chance of blood clots. Maintain isolation for additional 2 days, after which isolation can be discontinued as long as you are having no further fevers, muscle aches, chills, headache, nausea vomiting, diarrhea or other symptoms of acute illness. Cough may persist for a while, but should be improving. Follow-up with your primary provider to reassess your improvement in terms of breathing, as well as to recheck anemia. Please follow-up with gynecology Dr. Calabrese to continue work-up regarding prolonged bleeding and anemia. Please discuss and consider obtaining COVID-19 vaccination after you recover from acute illness to reduce chance of recurrence of the infection. Discuss with your primary provider. Discharge Attestations Time Spent in Discharge Care*: greater than 30 min Quality Metrics Clinical Quality Measures During this hospital stay, did patient experience: None Coding Level of Care Code Acute [facility] note Diagnoses Respiratory failure with hypoxia J96.91 COVID-19 U07.1 Heavy menstrual bleeding N92.1 Menorrhagia type: with irregular cycle
--- NOTE | 2021-03-15 18:49 | PC.RESP ---
SMOKING CESSATION INFORMATION SENT TO PATIENT.
== END 2021-03-15 20:40 | disposition home or self-care (01) | DRG 177 ==
LOC: ER 17:54 → MEDSURG 17:58
PROVIDERS: Admitting Provider Student in an Organized Health Care Education/Training Program; Emergency Provider Emergency Medicine; PCP Nurse Practitioner; Visit Provider Internal Medicine
DX: U07.1 COVID-19 (principal); J12.82 Pneumonia due to coronavirus disease 2019; J96.01 Acute respiratory failure with hypoxia; N92.1 Excessive and frequent menstruation with irregular cycle; Z87.891 Personal history of nicotine dependence; D50.9 Iron deficiency anemia, unspecified; B96.89 Other specified bacterial agents as the cause of diseases classified elsewhere
CPT/HCPCS: 36415; 36600; 51702; 71045; 71275; 80051; 80053; 80061; 81001; 82330; 82550; 82728; 82805; 83036; 83540; 83550; 83605; 83615; 83735; 83880; 84145; 84443; 85007; 85025; 85378; 85384; 85651; 86140; 86403; 87040; 87070; 87086; 87205; 87426; 87449; 87641; 87804; 93005; 93306; 94640; 94762; 96365; 96367; 96372; 99285; J0456; J1100; J1644; J1756; J1940; J3262; J3490; J3535; J7040; J7050; Q9967

== ENCOUNTER → 2021-09-24 14:28 | Outpatient (BNVA) | payer BC, SELFPAY | PROVIDERS: PCP Family Medicine Adult Medicine; Visit Provider Emergency Medicine | DX: Z20.822 Contact with and (suspected) exposure to COVID-19; J40 Bronchitis, not specified as acute or chronic | CPT/HCPCS: 87635 ==

== ENCOUNTER → 2022-06-17 13:41 | Outpatient (BNVA) | payer BC, SELFPAY | PROVIDERS: PCP Family Medicine Adult Medicine; Visit Provider Obstetrics & Gynecology | DX: N92.1 Excessive and frequent menstruation with irregular cycle (principal); E89.40 Asymptomatic postprocedural ovarian failure; Z90.710 Acquired absence of both cervix and uterus | CPT/HCPCS: 83001; 84146; 84443; 84702 ==

== ENCOUNTER → 2022-06-27 15:28 | Outpatient (BNVA) | payer BC, SELFPAY | PROVIDERS: PCP Family Medicine Adult Medicine; Visit Provider Obstetrics & Gynecology | DX: N93.9 Abnormal uterine and vaginal bleeding, unspecified (principal); N85.4 Malposition of uterus | CPT/HCPCS: 76830 ==

== ENCOUNTER → 2022-07-01 15:11 | Outpatient (BNVA) | payer BC, SELFPAY | PROVIDERS: PCP Family Medicine Adult Medicine; Visit Provider Obstetrics & Gynecology | DX: N92.0 Excessive and frequent menstruation with regular cycle (principal) | CPT/HCPCS: 81025; 88305 ==

== ENCOUNTER 2022-09-21 16:09 | Observation (INO) | payer BC, SELFPAY ==
[2022-09-19 10:32] VITALS: BMI 48.5
--- NOTE | 2022-09-19 11:01 | ANES.PREANE2 ---
Pre-Anesthetic Assessment Height/Weight: Height 1.7 m Weight 140.614 kg Preop Diagnosis: Abnormal uterine bleeding, menorrhagia Operation Date: 09/21/22 11:30 Proposed Procedures p Total Vaginal Hysterectomy 84373,N93.9(Not Applicable) - Pacheco Calabrese MD Familial anesthetic complications: Slow to wake up from gallbladder surgery Social No alcohol and No tobacco former smoker Exam alert, oriented x 3, clear to auscultation bilaterally and regular rate & rhythm Airway Mallampati: Class III Dentition: chipped and other (missing teeth) Pulmonary Shortness of Breath COVID-19 w/ resp failure in march CV/HEM Anemia and None reported None reported Hepatic None reported Metabolic Morbid Ob[place] [facility] [place] Fibromyalgia Neuropsych None reported Anesthetic Plan ASA status: 3 Anesthesia: General Risk of > 500 ml blood loss (7ml/kg in children): No Medications/Allergies Home Medications Medication Instructions Recorded Confirmed Last Taken Type escitalopram oxalate 20 mg tablet 20 mg PO BEDTIME 02/23/21 09/19/22 09/19/22 History (Lexapro) ferrous sulfate 325 mg (65 mg 325 mg PO EVERY OTHER DAY #45 tabs 03/15/21 09/19/22 09/19/22 Rx iron) tablet (Iron (ferrous sulfate)) alprazolam 0.25 mg tablet 0.25 mg PO BID 06/17/22 09/19/22 Unknown History Allergies Allergy/AdvReac Type Severity Reaction Status Date / Time codeine Allergy Intermediate rash Verified 09/19/22 10:30 Penicillins Allergy Intermediate rash Verified 09/19/22 10:30 [facility] Anesthesia Medical History Abnormal uterine bleeding (AUB) Flu-like symptoms Morbid obesity with BMI of 45.0-49.9, adult Pre-diabetes Surgical History H/O dilation and curettage x2 S/P cholecystectomy Family History Grandfather Diabetes maternal Hyperlipidemia maternal Hypertension maternal Heart disease maternal Brother Heart disease Denies family history of Colon cancer Ovarian cancer Clotting disorder Breast cancer Anesthesia complication Bleeding disorder Uterine cancer Thyroid condition Stroke Social History (Updated 06/17/22 @ 09:19 by Magdalena Koehler RN) Smoking and tobacco status: former smoker Female Reproductive History Date of last menstrual period: 09/12/22 Spontaneous abortions: No Data Anesthesia Cardiac Studies: Echocardiogram 03/11/21
[2022-09-19 11:13] LABS: Basophils # 0.1 10^3/uL (0.0-0.1); Basophils % 0.7 %; Eosinophils # 0.1 10^3/uL (0.0-0.8); Eosinophils % 1.1 %; Hematocrit 34.1 % (37.0-47.0); Lymphocytes # 2.3 10^3/uL (0.8-4.8); Lymphocytes % 25.6 %; Mean Corpuscular HGB Conc 29.3 g/dL (30.0-36.0); Mean Corpuscular Hemoglobin 25.4 pg (28.0-34.0); Mean Corpuscular Volume 86.8 fl (81-99); Mean Platelet Volume 10.6 fL (7.4-10.4); Monocytes # 0.4 10^3/uL (0.2-0.9); Monocytes % 4.9 %; Neutrophils # 5.95 10^3/uL (1.8-7.7); Neutrophils % 65.7 %; Nucleated Red Blood Cells # 0.1 /100WBC; Nucleated Red Blood Cells % 0.6 %; Platelet Count 366 10^3/cmm (130-400); Red Blood Count 3.93 10^6/uL (4.1-5.3)
[2022-09-19 11:37] LABS: Alanine Aminotransferase 10 U/L (0-33); Albumin Level 3.9 g/dL (3.5-5.2); Alkaline Phosphatase 101 U/L (35-105); Anion Gap 11.3 (5-19); Aspartate Amino Transferase 12 U/L (0-32); Blood Urea Nitrogen 9 mg/dL (6-20); Calcium 8.7 mg/dL (8.5-10.5); Carbon Dioxide 22 mmol/L (22-29); Chloride 104 mmol/L (98-107); Glomerular Filtration Rate 109.6 mL/min (90-130); Glucose 86 mg/dL (65-115); Osmolality Calculated 274 mOsm/kg (285-295); Potassium 4.3 mmol/L (3.5-5.1); Sodium 133 mmol/L (136-145); Total Bilirubin 0.2 mg/dL (0.15-1.2); Total Protein 6.9 g/dL (6.6-8.7)
[2022-09-21] VITALS (22 sets, daily range): BP systolic 96–167; BP diastolic 57–97; PULSE 54–109; RESP 13–19; TEMP 36.1–36.7; O2SAT 90–99
[2022-09-21 07:43] LABS: Add Urine Microscopic? NO; Charge for UA Resulting for Rev
[2022-09-21 07:48] LABS: OR HCG Qualitative Urine Negative (Negative)
--- NOTE | 2022-09-21 07:49 | P.ANESUD_ITS ---
Pre-Anesthetic Update Pre-Anesthetic Assessment: Date of Surgery/Procedure: 09/21/22 Preop Rohini gnosis: Abnormal uterine bleeding, menorrhagia Proposed Procedure: Operation Date: 09/21/22 09:15 Proposed Procedures p Total Vaginal Hysterectomy 89933,N93.9(Not Applicable) - Pacheco Calabrese MD Any changes to Pre-Anesthetic Assessment?: No Last Intake: Intake Last Liquid Date 09/20/22 Last Liquid Time 22:30 Last Solid Date 09/20/22 Last Solid Time 21:00 Labs Last 48hrs: Short CBC 09/19/22 Range/Units 10:53 WBC 9.0 (4.0-10.0) 10^3/ uL Hgb 10.0 L (11.5-15.3) g/dL Hct 34.1 L (37.0-47.0) % MCV 86.8 (81-99) fl Plt Count 366 (130-400) 10^3/c mm Neut % (Auto) 65.7 % Neut # (Auto) 5.95 (1.8-7.7) 10^3/u L BMP 09/19/22 10:53 Sodium 133 L Potassium 4.3 Chloride 104 Carbon Dioxide 22 BUN 9 Creatinine 0.6 Glucose 86 Calcium 8.7 Liver Function 09/19/22 Range/Units 10:53 Total Bilirubin 0.2 (0.15-1.2) mg/dL AST 12 (0-32) U/L ALT 10 (0-33) U/L Alkaline Phosphata se 101 (35-105) U/L Albumin 3.9 (3.5-5.2) g/dL Blood Bank 09/19/22 10:53 Blood Type O Positive Rho(D) Type Positive Antibody Screen Negative Vitals: Temperature 97.5 F L 09/21/22 07:44 Temperature Source Temporal Artery S can 09/21/22 07:44 Pulse Rate 81 09/21/22 07:44 Respiratory Rate 18 09/21/22 07:44 Blood Pressure 167/97 09/21/22 07:44 Blood Pressure Zayra n 120 09/21/22 07:44 Pulse Oximetry 97 09/21/22 07:44 Oxygen Delivery Me thod 09/21/22 07:44 Exam: Pre-Anes Outpt Exam: alert, oriented x 3, clear to auscultation bilaterally and regular rate & rhythm Cardiac Studies: Echocardiogram 07/15/21
[2022-09-21 07:54] LABS: Bilirubin Urine Neg (Negative); Blood Urine Neg (Negative); Glucose Urine UA Norm (Normal); Ketones Urine Negative (Negative); Leukocyte Esterase Urine Negative (Negative); Nitrate Urine Negative (Negative); Protein Urine Neg (Negative); Specific Gravity, Urine 1.025 (1.005-1.030); Urine Appearance Clear (CLEAR); Urine Color Yellow (Yellow); Urobilinogen Urine Neg (Negative); pH Urine 5 (5-7)
[2022-09-21] MEDS: sodium chloride 0.9% 500 ML IV (08:14)
[2022-09-21] MEDS: enoxaparin 30 mg/0.3 mL Syringe SUBCUT (08:14)
[2022-09-21] MEDS: scopolamine 1.5 Patch 1 PATCH TRANSDERMA (08:15)
[2022-09-21] MEDS: sodium chloride 0.9% 1,000 ML 30 ML IV (08:46)
--- NOTE | 2022-09-21 09:18 | W.PM.OPSUD ---
Surgery/Procedure H&P Update DATE OF PROCEDURE: September 21, 2022 DATE H&P PERFORMED: 09/19/22 H&P UPDATE INFORMATION: I have reviewed H&P completed within last 30 days, I have examined patient prior to procedure and No changes to prior documentation PREOP DIAGNOSIS: Abnormal uterine bleeding, menorrhagia PLANNED PROCEDURE: Operation Date: 09/21/22 09:15 Proposed Procedures p Total Vaginal Hysterectomy 81317,N93.9(Not Applicable) - Pacheco Calabrese MD
[2022-09-21] MEDS: levofloxacin-dextrose 5 % 500 MG/100 ML PREMIX 100 MG IV (09:29)
[2022-09-21] MEDS: vancomycin 1,000 MG in sodium chloride 0.9% 250 ML 250 MG IV (09:30)
--- NOTE | 2022-09-21 11:53 | PM.OP ---
Operative Report Date of procedure: September 21, 2022 Pre-op diagnosis: Preop Diagnosis Abnormal uterine bleeding, menorrhagia Post-op diagnosis: Abnormal uterine bleeding Procedure done: Total vaginal hysterectomy. Excision of left labia and perineal skin tags. Specimens removed/disposition: Uterus Left labia skin tag Perineal skin tag Surgeon: Pacheco Calabrese MD Estimated blood loss (mL): 450 IV fluids (mL): 1,300 Urine output (mL): 200 Procedure: After informed consent and risks, benefits, indications and alternatives reviewed with the patient was taken to the operating room. The patient was placed in dorsal lithotomy position prepped, and draped in the usual sterile fashion. The pre-procedure timeout verifying the correct patient, procedure, site and side, could not requirements was performed and acknowledge by the OR team. A Alejo catheter was placed. A Bookwalter vaginal retractor was placed into the vagina in usual manner visualize the cervix. Cervix was grasped with a single tooth tenaculum and circumferentially infiltrated with 2% lidocaine with epinephrine. Then cervix was circumferentially incised with bovie and the bladder was dissected off the pubovesical cervical fascia anteriorly with a sponge stick and Metzenbaum scissors. The anterior peritoneal reflection was identified and the anterior cul-de-sac was entered sharply with Metzenbaum scissors. The same procedure was performed posteriorly and a posterior colpotomy was made through the posterior cul-de-sac space without difficulty and the posterior blade of the Bookwalter vaginal retractor was advanced posteriorly into the cul-de-sac. At this time, the left and right uterosacral ligaments were isolated and ligated with 0 Vicryl. The Enseal device was placed over the uterosacral ligaments on either side and was then used in a serial fashion up through the cardinal ligaments bilaterally cross-clamped, cut, and sealed with the Enseal device. Finally, the uterine arteries were cross-clamped, cut, sealed and ligated with the Enseal device. Hemostasis was assured. The broad ligaments were then serially clamped, sealed and cut with the Enseal device on both sides. Excellent hemostasis was visualized. Both cornua were clamped, sealed and cut with the Enseal device. Then the pedicles were then suture ligated with excellent hemostasis. The uterus was excised and submitted for pathologic evaluation. No other abnormalities were noted in the pelvic cavity. Good hemostasis was assure on both sides. The peritoneum was then closed in a pursestring fashion with 0 Vicryl suture. The vaginal cuff angles were closed with [id number] #0 Vicryl suture on both sides and transfixed with the ipsilateral cardinal and uterosacral ligaments. The remainder of the vaginal cuff was closed with #0 Vicryl in a running locked fashion. At this time, instruments were removed from the vagina at hemostasis assured. Left labia skin tag was grasp with forceps and excise with bovie without complicaqtions and good hemostasis. Then the parineal skin tag was removed using scalpel and incision closed with O-3 vicryl in a subcuticular fashion with out complications. The Alejo catheter was noted yielding clear dannielle urine. The patient was taken out of dorsal lithotomy position and awakened from the general anesthesia. The patient tolerated the procedure well and was taken to the PACU recovery room in a stable condition. Sponge, lap, needle and instruments counts were correct x3.
[2022-09-21] MEDS: ondansetron 2 mg/ML SDV 2 mL 4 MG IVP ×3 (12:17→22:01)
[2022-09-21] MEDS: fentaNYL 50 mcg/mL INJ 2mL IVP (12:38)
--- NOTE | 2022-09-21 14:13 | ANE.PACU2 ---
Inpatient post-anesthesia follow up: Airway intact: Yes Vital signs: Temperature 98 F Pulse Rate 54 Respiratory Rate 15 Blood Pressure 117/96 Pulse Oximetry 95 Oxygen Delivery Me thod Nasal Cannula Oxygen Flow Rate 2.0 Fraction of Inspir ed Oxygen Hydration adequate: Yes Nausea and vomiting: No Pain level: 1 Mental status: Baseline
[2022-09-21] MEDS: HYDROmorphone 1 mg/mL INJ 1 mL 0.25 MG IVP (14:28)
[2022-09-21] MEDS: ketorolac 30 mg/mL INJ IVP ×2 (16:25→22:01)
[2022-09-21] MEDS: dextrose 5%-lactated ringers 1,000 ML 125 ML IV (17:32)
[2022-09-21] MEDS: docusate sodium 100 mg Capsule PO (18:47)
--- NOTE | 2022-09-21 20:30 | PC.NURSE ---
Patient got up to the chair with standby assist at this time. She tolerated it well. She reports feeling cramping but not really pain that she could rate. She requested an ice cream and is now sitting in the chair watching TV.
[2022-09-21] MEDS: escitalopram 10 mg Tablet 20 MG PO (21:15)
--- NOTE | 2022-09-21 22:04 | PC.NURSE ---
Patient requested to walk at this time. JONATHAN Emery walked with the patient and made one lap around the OB department she did report feeling nauseated towards the end and she was helped back to bed. I gave her PRN zofran and gave her apple juice and applesauce. She has not been eating much this evening due to dry mouth.
[2022-09-22 00:25] VITALS: BP 121/84; PULSE 88; RESP 18; TEMP 36.7; O2SAT 95
[2022-09-22] MEDS: dextrose 5%-lactated ringers 1,000 ML 125 ML IV (01:24)
[2022-09-22 04:05] VITALS: BP 143/72; PULSE 81; RESP 18; TEMP 36.7; O2SAT 95
[2022-09-22] MEDS: ketorolac 30 mg/mL INJ IVP (04:05)
[2022-09-22 05:25] LABS: Hematocrit 28.5 % (37.0-47.0); Hemoglobin 8.4 g/dL (11.5-15.3); Mean Corpuscular HGB Conc 29.5 g/dL (30.0-36.0); Mean Corpuscular Hemoglobin 26.1 pg (28.0-34.0); Mean Corpuscular Volume 88.5 fl (81-99); Mean Platelet Volume 10.6 fL (7.4-10.4); Platelet Count 320 10^3/cmm (130-400); Red Blood Count 3.22 10^6/uL (4.1-5.3); Red Cell Distribution Width 15.8 % (12.1-15.1); White Blood Count 13.9 10^3/uL (4.0-10.0)
[2022-09-22] MEDS: docusate sodium 100 mg Capsule PO (09:04)
[2022-09-22 09:07] VITALS: BP 133/81; PULSE 78; RESP 16; TEMP 36.7; O2SAT 96
--- NOTE | 2022-09-22 10:20 | PM.OBGYDC ---
Discharge Providers [employer] Date of Admission: 09/21/22 16:09 Date of Discharge: 09/22/22 Attending Provider at Admission: Pacheco Calabrese MD Attending Provider at Discharge: Pacheco Calabrese MD Primary [employer]: Pacheco Calabrese MD Primary Care Provider: Jai Lee MD Reason for Visit Reason for Visit: Abnormal uterine and vaginal bleeding, unspecified Hospital Course Hospital Course for 41-year-old female admitted for planned total vaginal hysterectomy due to abnormal uterine bleeding. The procedure was performed without complication. Overnight observation was uneventful. She is afebrile and hemodynamically stable with postoperative day 1. Tolerating diet well. Ambulating without difficulty. Patient was counseled regarding pelvic rest for 6 weeks (no sex, no tampons, no vaginal douches). Return to the emergency room if any fever, increased bleeding or pain. Physical Exam Narrative: GA: Alert and oriented ?3. HEENT: WNL. Heart: Regular rate and rhythm. Lungs: Clear to auscultation bilaterally. Abdomen: Bowel sounds present, nontender, minimal tenderness. PROJECTION TECHNICIAN: spotting bleeding. Extremities: No edema, no cyanosis, no calves pain. Urinary Catheter Management: Alejo: Cath Placed During This Visit: yes, but has since been removed by the nurse Reason for Continuing Indwelling Catheter: Decision to DC Catheter Urinary Catheter Date of Insertion: 09/21/22 Urinary Catheter Time of Insertion: 10:04 Date Urinary Catheter Removed: 09/22/22 Time Urinary Catheter Discontinued: 05:10 History History History 4 Term 2 0 Miscarriages/Ectopic 2 Living Children 2 Discharge Data Studies Completed and Pending Pending at discharge Category Date Time Status Pathology: Surgical [PTH] Routine Pth 09/21/22 12:10 Received Laboratory Results WBC 13.9 10^3/uL (4.0-10.0) H 09/22/22 05:20 RBC 3.22 10^6/uL (4.1-5.3) L 09/22/22 05:20 Hgb 8.4 g/dL (11.5-15.3) L 09/22/22 05:20 Hct 28.5 % (37.0-47.0) L 09/22/22 05:20 MCV 88.5 fl (81-99) 09/22/22 05:20 MCH 26.1 pg (28.0-34.0) L 09/22/22 05:20 MCHC 29.5 g/dL (30.0-36.0) L 09/22/22 05:20 RDW 15.8 % (12.1-15.1) H 09/22/22 05:20 Plt Count 320 10^3/cmm (130-400) 09/22/22 05:20 MPV 10.6 fL (7.4-10.4) H 09/22/22 05:20 Neut % (Auto) 65.7 % 09/19/22 10:53 Lymph % (Auto) 25.6 % 09/19/22 10:53 [place] % (Auto) 4.9 % 09/19/22 10:53 Eos % (Auto) 1.1 % 09/19/22 10:53 Baso % (Auto) 0.7 % 09/19/22 10:53 Neut # (Auto) 5.95 10^3/uL (1.8-7.7) 09/19/22 10:53 Lymph # (Auto) 2.3 10^3/uL (0.8-4.8) 09/19/22 10:53 [place] # (Auto) 0.4 10^3/uL (0.2-0.9) 09/19/22 10:53 Eos # (Auto) 0.1 10^3/uL (0.0-0.8) 09/19/22 10:53 Baso # (Auto) 0.1 10^3/uL (0.0-0.1) 09/19/22 10:53 Nucleated RBC % (auto) 0.6 % 09/19/22 10:53 Nucleated RBCs # 0.1 /100WBC 09/19/22 10:53 Sodium 133 mmol/L (136-145) L 09/19/22 10:53 Potassium 4.3 mmol/L (3.5-5.1) 09/19/22 10:53 Chloride 104 mmol/L (98-107) 09/19/22 10:53 Carbon Dioxide 22 mmol/L (22-29) 09/19/22 10:53 Anion Gap 11.3 (5-19) 09/19/22 10:53 BUN 9 mg/dL (6-20) 09/19/22 10:53 Creatinine 0.6 mg/dL (0.5-0.9) 09/19/22 10:53 GFR Calculation 109.6 mL/min (90-130) 09/19/22 10:53 Glucose 86 mg/dL (65-115) 09/19/22 10:53 Calculated Osmolality 274 mOsm/kg (285-295) L 09/19/22 10:53 Calcium 8.7 mg/dL (8.5-10.5) 09/19/22 10:53 Total Bilirubin 0.2 mg/dL (0.15-1.2) 09/19/22 10:53 AST 12 U/L (0-32) 09/19/22 10:53 ALT 10 U/L (0-33) 09/19/22 10:53 Alkaline Phosphatase 101 U/L (35-105) 09/19/22 10:53 Total Protein 6.9 g/dL (6.6-8.7) 09/19/22 10:53 Albumin 3.9 g/dL (3.5-5.2) 09/19/22 10:53 Globulin 3.0 g/dL (1.3-4.6) 09/19/22 10:53 Urine Color Yellow (Yellow) 09/21/22 07:35 Urine Appearance Clear (CLEAR) 09/21/22 07:35 Urine pH 5 (5-7) 09/21/22 07:35 Ur Specific [place] 1.025 (1.005-1.030) 09/21/22 07:35 Urine Protein Neg (Negative) 09/21/22 07:35 Urine Glucose (UA) Norm (Normal) 09/21/22 07:35 Urine Ketones Negative (Negative) 09/21/22 07:35 Urine Blood Neg (Negative) 09/21/22 07:35 Urine Nitrate Negative (Negative) 09/21/22 07:35 Urine Bilirubin Neg (Negative) 09/21/22 07:35 Urine Urobilinogen Neg mg/dL (Negative) 09/21/22 07:35 Ur Leukocyte Esterase Negative (Negative) 09/21/22 07:35 Urine HCG, Qual Negative (Negative) 09/21/22 07:47 Blood Type O Positive 09/19/22 10:53 Rho(D) Type Positive 09/19/22 10:53 Antibody Screen Negative 09/19/22 10:53 Vitals Last Vital Signs Temp 98.1 F 09/22/22 09:07 Pulse 78 09/22/22 09:07 Resp 16 09/22/22 09:07 BP 133/81 09/22/22 09:07 Pulse Ox 96 09/22/22 09:07 O2 Del Method 09/22/22 09:07 O2 Flow Rate 2.0 09/21/22 14:23 Discharge Plan Discharge Patient Disposition: Home Condition: Stable Prescriptions: New hydrocodone-acetaminophen 5-325 mg tablet 1 tab PO Q4H PRN (Reason: pain) Qty: 20 0RF acetaminophen 325 mg capsule 325 mg PO Q4H PRN (Reason: fever or pain) Qty: 60 0RF docusate sodium [Colace] 100 mg capsule 100 mg PO BID Qty: 60 0RF ibuprofen 800 mg tablet 800 mg PO TID PRN (Reason: pain) Qty: 60 0RF ferrous sulfate [Iron (ferrous sulfate)] 325 mg (65 mg iron) tablet 325 mg PO BID Qty: 60 0RF Continued escitalopram oxalate [Lexapro] 20 mg tablet 20 mg PO BEDTIME alprazolam 0.25 mg tablet 0.25 mg PO BID Rx Instructions: never taken this ferrous sulfate [Iron (ferrous sulfate)] 325 mg (65 mg iron) tablet 325 mg PO EVERY OTHER DAY Qty: 45 0RF Discharge Orders: Discharge Order (Routine); Ordered 09/22/22 Ordered By: Pacheco Calabrese Referrals: Pacheco Calabrese MD [Physician] - 10/04/22 11:30 am (6 week follow up 11/01/22@11:15am) Discharge Diet: Usual diet Discharge Activity: Limit activity as instructed Patient Instructions: Ibuprofen (By mouth), Laxative, Stool Softeners (By mouth), Vaginal Hysterectomy (DC), OB Discharge Report, OB Food/Drug Interaction Guide, Opioid Safety Activity Restrictions/Additional Instructions: 1. Please call [facility] on next working day to make your post-operative appointment in 2 weeks. 2. Please stay home until you come back to the clinic on first post-operative check up. 3. Please follow instructions on your medications CAREFULLY. 4. If you have abdominal incision, do not cover it unless dressing is necessary because of drainage. OK to shower, but avoid bath. Leave steri-strips until they fall off. If they are still on one week after surgery, you may remove them. 5. If you had vaginal surgery or vaginal repair, Dr. Calabrese may instruct you to take SITZ bath. 6. Yellow, blood tinged odorous vaginal discharge is usually normal after hysterectomy or vaginal surgeries. 7. No sexual intercourse, tampons, or douches until you are completely released from the post-operative care. 8. Avoid constipation by eating right and maybe using some Metamucil or Milk of Magnesia. 9. All prescription refills are given during the working hours. Please do no wait till it runs out. Call the clinic at [phone] before your medication runs out. The clinic will get in touch with your doctor to prescribe medications if necessary. 10. Please remain within 40 mile radius from our hospital because emergencies do happen now and then during the post-operative period. 11. If you have stairs at home, take one step at a time slowly and minimize the number of trips. It helps to stay in one floor for the next few days. No lifting except what you can lift by one hand until you are released from the post-operative care. 12. Driving is discouraged until you are well healed. It may be 3-4 weeks before you feel strong enough to drive. You should be able to turn and look through the rear window without pain and you should be able to push the brake pedal very hard without pain before you drive. No fast rules, but SAFETY should be your primary concern. DO NOT drive if you are on sedating medications such as narcotics. 13. Call the clinic (during working hours) to make urgent appointment or go to the Emergency room, if any of the following occurs: i. Vaginal bleeding becomes heavy, more than a period. ii. Incision becomes red and sore, or drains pus. iii. Your temperature is over 100.4 or you have chill. iv. IV site becomes red and swollen (a little ``knot?? is usually OK) v. Persistent nausea and vomiting vi. Persistent constipation or diarrhea vii. Rash or allergic reaction to medications. Discharge Attestations [employer] Time Spent in Discharge Care*: greater than 30 min Coding Level of Care Code Acute Code for Chg Fwd
[2022-09-22 11:39] VITALS: BP 120/72; PULSE 70; RESP 14; TEMP 36.8; O2SAT 97
[2022-09-22 11:40] VITALS: BP 120/72; PULSE 70; RESP 14; TEMP 36.8; O2SAT 97
--- NOTE | 2022-09-22 17:55 | PC.NURSE ---
Patient does not have wound information entered on wrong chart Lexie Dong RN
== END 2022-09-22 11:44 | disposition home or self-care (01) ==
LOC: OBGYN 18:34
PROVIDERS: Admitting Provider Obstetrics & Gynecology; PCP Family Medicine Adult Medicine; Visit Provider Obstetrics & Gynecology
PROC: (CPT 11200; principal; 2022-09-21 09:15)
DX: N92.0 Excessive and frequent menstruation with regular cycle (principal); N90.89 Other specified noninflammatory disorders of vulva and perineum; Z87.891 Personal history of nicotine dependence; Z86.16 Personal history of COVID-19; E66.01 Morbid (severe) obesity due to excess calories; Z68.24 Body mass index [BMI] 24.0-24.9, adult
CPT/HCPCS: 11200; 46220; 58260; 36415; 80053; 81003; 81025; 84703; 85025; 85027; 86850; 86900; 88304; 88307; 96374; 96376; G0378; J1100; J1170; J1650; J1885; J1956; J2405; J2704; J2710; J3010; J3370; J3490; J7030; J7040; J7050; J7121; Q9968